=== PATIENT | male | born 1940 | race Caucasian/White ===

== ENCOUNTER 2016-02-21 07:58 | Inpatient (IN) | payer MEDICARE, BC ==
--- NOTE | 2016-02-21 08:26 | ED ---
General Adult HPI - General Chief complaint: Urogenital Stated complaint: weakness,SOB Time Seen by Provider: 02/21/16 08:00 Source: patient, EMS, RN notes reviewed, old records reviewed Mode of arrival: EMS Limitations: no limitations - History of Present Illness Initial comments: This is a 75-year-old male ER for evaluation of weakness. Patient does have Acute medical history including heart disease, A. fib, pacer, kidney injury. Patient coming in with severe weakness and inability urinate, diffuse abdominal pain, body pain, low-grade fever but mainly weakness. Patient is taking all medications as prescribed. States that his urine feels like he has to go to the bathroom but he cannot urinate. Decreased urinary output, decreased appetite. Mild cough and congestion with mild shortness of breath. No recent travel history or sick contacts, no known fevers - Related Data Home Medications Medication Instructions Recorded Confirmed Aspirin EC [Ecotrin Low Dose] 162 mg PO DAILY@1200 02/20/14 02/21/16 Carvedilol [Coreg] 25 mg PO BID@0800,1700 02/20/14 02/21/16 Furosemide [Lasix] 20 mg PO DAILY@0800 02/20/14 02/21/16 Insulin Glargine,Hum.rec.anlog 52 unit SQ HS@219902/20/14 02/21/16 [Lantus Solostar] Nitroglycerin Sl Tabs [Nitrostat] 0.4 mg SUBLINGUAL Q5M PRN 02/20/14 02/21/16 Ramipril [Altace] 10 mg PO DAILY@0800 02/20/14 02/21/16 Repaglinide [Prandin] 2 mg PO TID@0800,1200,1700 02/20/14 02/21/16 Sotalol [Betapace] 120 mg PO BID@1200,0 02/20/14 02/21/16 Apixaban [Eliquis] 2.5 mg PO BID@0800,22011/29/15 02/21/16 Cholecalciferol [Vitamin D3] 1,000 unit PO DAILY@1700 11/29/15 02/21/16 Famotidine [Pepcid AC] 10 mg PO BID@0800,2200 11/29/15 02/21/16 Hydrochlorothiazide [Hydrodiuril] 25 mg PO DAILY@0800 11/29/15 02/21/16 Insulin Lispro [humaLOG Kwikpen] 3 unit SQ TID@0800,1200,1700 11/29/15 02/21/16 Atorvastatin [Lipitor] 40 mg PO HS@2200 02/21/16 02/21/16 Allergies Allergy/AdvReac Type Severity Reaction Status Date / Time gabapentin [From Neurontin] Allergy almost Verified 02/21/16 08:32 passed out codeine AdvReac Unknown Verified 02/21/16 08:32 Review of Systems ROS Statement: Those systems with pertinent positive or pertinent negative responses have been documented in the HPI. ROS Other: All systems not noted in ROS Statement are negative. Past Medical History Past Medical History: Atrial Fibrillation, Diabetes Mellitus, Deep Vein Thrombosis (DVT), Hyperlipidemia, Hypertension, Myocardial Infarction ([place]) Additional Past Medical History / Comment(s): SEE DR BENJAMIN'S HISTORY AND PHYSICAL Last Myocardial Infarction Date:: 2010 History of Any Multi-Drug Resistant Organisms: None Reported Past Surgical History: AICD, Heart Catheterization, Joint Replacement, Orthopedic Surgery Additional Past Surgical History / Comment(s): LEFT-arthroscopic knee, TOTAL LEFT KNEE, LESION REMOVED FROM BACK Past Anesthesia/Blood Transfusion Reactions: No Reported Reaction Type of Cardiac Device: AICD Device Placement Date:: 2010-[employer] Past Psychological History: Anxiety Smoking Status: Former smoker Past Alcohol Use History: None Reported Additional Past Alcohol Use History / Comment(s): STARTED SMOKING AT AGE 16, QUIT 2006 Past Drug Use History: None Reported - Past Family History Daughter(s) Family Medical History: Cancer Father Family Medical History: Coronary Artery Disease (CAD) Additional Family Medical History / Comment(s): Father at the age of 72 yrs from [facility]. Mother Family Medical History: No Reported History Additional Family Medical History / Comment(s): Mother at the age of 84 yrs. General Exam Limitations: no limitations General appearance: alert, in no apparent distress, anxious, obese Head exam: Present: atraumatic, normocephalic, normal inspection Eye exam: Present: normal appearance, PERRL, EOMI. Absent: scleral icterus, conjunctival injection, periorbital swelling ENT exam: Present: normal exam, mucous membranes moist Neck exam: Present: normal inspection. Absent: tenderness, meningismus, lymphadenopathy Respiratory exam: Present: normal lung sounds bilaterally. Absent: respiratory distress, wheezes, rales, rhonchi, stridor Cardiovascular Exam: Present: regular rate, normal rhythm, normal heart sounds. Absent: systolic murmur, diastolic murmur, rubs, gallop, clicks GI/Abdominal exam: Present: soft, normal bowel sounds. Absent: distended, tenderness, guarding, rebound, rigid Extremities exam: Present: normal inspection, full ROM, normal capillary refill. Absent: tenderness, pedal edema, joint swelling, calf tenderness Back exam: Present: normal inspection Neurological exam: Present: alert, oriented X3, CN II-XII intact Psychiatric exam: Present: normal affect, normal mood Skin exam: Present: warm, dry, intact, normal color. Absent: rash Course Vital Signs 02/21/16 02/21/16 02/21/16 08:00 08:30 09:00 Temperature 97.4 F L Pulse Rate 53 L 54 L 50 L Respiratory 19 20 19 Rate Blood Pressure 133/65 146/67 158/68 O2 Sat by Pulse 100 100 98 Oximetry 02/21/16 09:30 Temperature Pulse Rate 51 L Respiratory 18 Rate Blood Pressure 148/68 O2 Sat by Pulse 96 Oximetry - Reevaluation(s) Reevaluation #1: 02/21/16 09:51 Patient is symptomatically improved with mild IV hydration, Virk catheter is placed EKG Findings - EKG Comments: EKG Findings:: EKG shows paced rhythm rate of 54, P-R 296, QRS 110, QTc 491 Medical Decision Making - Medical Decision Making 70 formality ER for evaluation of weakness, decreased urinary output. Patient does have worsening acute on chronic renal failure, severe. Weakness. Uremia. - Lab Data Result diagrams: 02/21/16 08:20 02/21/16 08:20 Lab Results 02/21/16 02/21/16 02/21/16 Range/Units 08:20 08:20 08:20 WBC 3.9 (3.8-10.6) k/uL RBC 3.47 L (4.30-5.90) m/uL Hgb 10.5 L (13.0-17.5) gm/dL Hct 29.6 L (39.0-53.0) % MCV 85.5 (80.0-100.0) fL MCH 30.3 (25.0-35.0) pg MCHC 35.4 (31.0-37.0) g/dL RDW 13.9 (11.5-15.5) % Plt Count 59 L (150-450) k/uL Neutrophils % (Manual) 58.0 % Lymphocytes % (Manual) 24.0 % Monocytes % (Manual) 16.0 % Basophils % (Manual) 2.0 % Neutrophils # (Manual) 2.3 (1.3-7.7) k/uL Lymphocytes # (Manual) 0.9 L (1.0-4.8) k/uL Monocytes # (Manual) 0.6 (0-1.0) k/uL Basophils # (Manual) 0.1 (0-0.2) k/uL Nucleated RBCs 0 (0-0) /100 WBC Manual Slide Review Performed Hyperchromasia Slight Poikilocytosis (manual Present PT (9.0-12.0) sec INR (<1.1) APTT (22.0-30.0) sec Sodium 130 L (137-145) mmol/L Potassium 5.0 (3.5-5.1) mmol/L Chloride 99 (98-107) mmol/L Carbon Dioxide 21 L (22-30) mmol/L Anion Gap 10 mmol/L BUN 78 H (9-20) mg/dL Creatinine 4.98 H (0.66-1.25) mg/dL Est GFR (MDRD) Af Amer 14 (>60 ml/min/1.73 sqM) Est GFR (MDRD) Non-Af 11 (>60 ml/min/1.73 sqM) Glucose 82 (74-99) mg/dL Plasma Lactic Acid Hua (0.7-2.0) mmol/L Calcium 7.4 L (8.4-10.2) mg/dL Phosphorus 5.3 H (2.5-4.5) mg/dL Magnesium 2.8 H (1.6-2.3) mg/dL Total Bilirubin 0.7 (0.2-1.3) mg/dL AST 22 (17-59) U/L ALT 41 (21-72) U/L Alkaline Phosphatase 82 (38-126) U/L Total Creatine Kinase 44 L (55-170) U/L CK-MB (CK-2) 1.4 (0.0-2.4) ng/mL CK-MB (CK-2) Rel Index 3.2 Troponin I 0.018 (0.000-0.034) ng/mL Total Protein 6.6 (6.3-8.2) g/dL Albumin 2.8 L (3.5-5.0) g/dL Urine Color Urine Appearance (Clear) Urine pH (5.0-8.0) Ur Specific Garden (1.001-1.035) Urine Protein (Negative) Urine Glucose (UA) (Negative) Urine Ketones (Negative) Urine Blood (Negative) Urine Nitrate (Negative) Urine Bilirubin (Negative) Urine Urobilinogen (<2.0) mg/dL Ur Leukocyte Esterase (Negative) Urine RBC (0-5) /hpf Urine WBC (0-5) /hpf Urine WBC Clumps (None) /hpf Calcium Oxalate Crystal (None) /hpf Amorphous Sediment (None) /hpf Urine Mucus (None) /hpf 02/21/16 02/21/16 02/21/16 Range/Units 08:20 08:20 09:48 WBC (3.8-10.6) k/uL RBC (4.30-5.90) m/uL Hgb (13.0-17.5) gm/dL Hct (39.0-53.0) % MCV (80.0-100.0) fL MCH (25.0-35.0) pg MCHC (31.0-37.0) g/dL RDW (11.5-15.5) % Plt Count (150-450) k/uL Neutrophils % (Manual) % Lymphocytes % (Manual) % Monocytes % (Manual) % Basophils % (Manual) % Neutrophils # (Manual) (1.3-7.7) k/uL Lymphocytes # (Manual) (1.0-4.8) k/uL Monocytes # (Manual) (0-1.0) k/uL Basophils # (Manual) (0-0.2) k/uL Nucleated RBCs (0-0) /100 WBC Manual Slide Review Hyperchromasia Poikilocytosis (manual PT 11.3 (9.0-12.0) sec INR 1.1 (<1.1) APTT 30.7 H (22.0-30.0) sec Sodium (137-145) mmol/L Potassium (3.5-5.1) mmol/L Chloride (98-107) mmol/L Carbon Dioxide (22-30) mmol/L Anion Gap mmol/L BUN (9-20) mg/dL Creatinine (0.66-1.25) mg/dL Est GFR (MDRD) Af Amer (>60 ml/min/1.73 sqM) Est GFR (MDRD) Non-Af (>60 ml/min/1.73 sqM) Glucose (74-99) mg/dL Plasma Lactic Acid Hua 0.9 (0.7-2.0) mmol/L Calcium (8.4-10.2) mg/dL Phosphorus (2.5-4.5) mg/dL Magnesium (1.6-2.3) mg/dL Total Bilirubin (0.2-1.3) mg/dL AST (17-59) U/L ALT (21-72) U/L Alkaline Phosphatase (38-126) U/L Total Creatine Kinase (55-170) U/L CK-MB (CK-2) (0.0-2.4) ng/mL CK-MB (CK-2) Rel Index Troponin I (0.000-0.034) ng/mL Total Protein (6.3-8.2) g/dL Albumin (3.5-5.0) g/dL Urine Color Yellow Urine Appearance Cloudy (Clear) Urine pH 5.0 (5.0-8.0) Ur Specific Garden 1.011 (1.001-1.035) Urine Protein 1+ H (Negative) Urine Glucose (UA) Negative (Negative) Urine Ketones Negative (Negative) Urine Blood Moderate H (Negative) Urine Nitrate Negative (Negative) Urine Bilirubin Negative (Negative) Urine Urobilinogen <2.0 (<2.0) mg/dL Ur Leukocyte Esterase Negative (Negative) Urine RBC 139 H (0-5) /hpf Urine WBC 8 H (0-5) /hpf Urine WBC Clumps Occasional H (None) /hpf Calcium Oxalate Crystal Rare H (None) /hpf Amorphous Sediment Rare H (None) /hpf Urine Mucus Rare H (None) /hpf - Radiology Data Radiology results: report reviewed (X-ray abdominal series with chest is negative for pneumonia, CT abdomen and pelvis negative for ureterolithiasis), image reviewed Disposition Clinical Impression: Acute renal failure, Electrolyte abnormality Disposition: ADMITTED IP TO THIS HOSP Condition: Fair
[2016-02-21] MEDS ORDERED: SODIUM CHLORIDE 0.9% 1,000 ML IV STA (08:28)
[2016-02-21] MEDS ORDERED: SODIUM CHLORIDE 0.9% 500 ML IV STA (08:28)
[2016-02-21 08:41] LABS: Aty Lym Flag Marked; CH 31.3; CHCM 36.8; HCT 29.6 % (39.0-53.0); HDW 3.31; HGB 10.5 gm/dL (13.0-17.5); Hyperchromasia Slight; MCH 30.3 pg (25.0-35.0); MCHC 35.4 g/dL (31.0-37.0); MCV 85.5 fL (80.0-100.0); Mean Platelet Volume 8.4; RBC 3.47 m/uL (4.30-5.90); RDW 13.9 % (11.5-15.5); WBC 3.9 k/uL (3.8-10.6); WBC (Perox) 4.38
[2016-02-21 08:51] LABS: INR 1.1 (<1.1); Partial Thromboplastin Time 30.7 sec (22.0-30.0); Prothrombin Time 11.3 sec (9.0-12.0)
[2016-02-21 08:53] LABS: Calcium 7.4 mg/dL (8.4-10.2); Magnesium 2.8 mg/dL (1.6-2.3); Phosphorous 5.3 mg/dL (2.5-4.5); Total Bilirubin 0.7 mg/dL (0.2-1.3); Total Protein 6.6 g/dL (6.3-8.2)
[2016-02-21] MEDS ORDERED: MORPHINE SULFATE 2 MG/ML SYRINGE IVP STA (09:01)
[2016-02-21 09:06] LABS: Add Differential Manual Differential
[2016-02-21 09:09] LABS: Nucleated Red Blood Cells 0 /100 WBC (0-0); Total Cells Counted 100
[2016-02-21 09:10] LABS: Manual Review Performed
[2016-02-21 09:17] LABS: Creatine Kinase MB 1.4 ng/mL (0.0-2.4); Troponin I 0.018 ng/mL (0.000-0.034)
[2016-02-21] MEDS ORDERED: SODIUM CHLORIDE 0.9% 1,000 ML IV ONE (09:49)
--- NOTE | 2016-02-21 10:09 | XR ---
EXAMINATION TYPE: XR abdomen acute w cxr DATE OF EXAM: 02/21/2016 9:37 AM COMPARISON: NONE HISTORY: Pain TECHNIQUE: Single view of the chest and 2 views of the abdomen are submitted. FINDINGS: Single view of the chest fails demonstrate evidence for acute pulmonary disease. There is no evidence for pneumoperitoneum. The bowel gas pattern is unremarkable as there is air throughout nondilated small and large bowel. No sizeable air fluid levels. No mass effects are seen. No unusual calcifications. IMPRESSION: Unremarkable study
[2016-02-21] MEDS: cefTRIAXone 2,000 MG in SODIUM CHLORIDE 0.9% 100 ML IVPB STA ×2 (10:20→12:08)
[2016-02-21 10:29] LABS: Amorphous Sediment,Urine Rare /hpf; Appearance,Urine Cloudy (Clear); Bilirubin,Urine Negative (Negative); Calcium Oxalate Crystals,Urine Rare /hpf; Glucose,Urine (UA) Negative (Negative); Ketones,Urine Negative (Negative); Leukocyte Esterase,Urine Negative (Negative); Mucus,Urine Rare /hpf; Nitrite,Urine Negative (Negative); Particle Count 14041; Protein,Urine 1+ (Negative); RBC,Urine 139 /hpf (0-5); Specific Gravity,Urine 1.011 (1.001-1.035); UA Billing (MACRO vs. MICRO) MICRO; Urobilinogen,Urine <2.0 mg/dL (<2.0); WBC,Urine 8 /hpf (0-5)
--- NOTE | 2016-02-21 11:13 | CT ---
EXAMINATION TYPE: CT abdomen pelvis wo con DATE OF EXAM: 02/21/2016 10:40 AM COMPARISON: NONE HISTORY: Patient having generalized abdominal pain and has renal failure CT DLP: 2805 mGycm Automated exposure control for dose reduction was used. FINDINGS: LUNG BASES: There may be small effusions, airspace associated atelectasis, some minimal groundglass o pacity may represent alveolitis, early airspace disease. Intracardiac defibrillator leads are present . The heart is enlarged. No pericardial effusion. Lack of contrast may compromise sensitivity. No retroperitoneal adenopathy, ascites, or pneumoperiton eum evident. AORTA: Infrarenal abdominal aorta is mildly aneurysmal at 4.3 cm. LIVER/GB: Punctate calcifications adjacent to the inferior vena cava within the liver are indetermina te, high attenuation within the dependent portion of the gallbladder compatible with stones. Liver sp an suggests hepatomegaly. PANCREAS: No significant abnormality is seen. SPLEEN: Enlarged measuring greater than 14 cm. ADRENALS: Fat-containing mass is present on the left measuring 4.8 cm compatible with myelolipoma. KIDNEYS: Low dense mass of the upper pole is indeterminate measuring approximately 1.4 cm. Nonobstruc tive calculus present at the lower pole of the left kidney measuring only approximately 5 mm. No uret eral calcification. REPRODUCTIVE ORGANS: Prostate is enlarged and shows associated calcifications. Urinary bladder is ca theterized and collapsed, no free fluid or pelvic adenopathy. BOWEL: Colonic interposition present anterior to the liver, scattered diverticular changes are prese nt. No evident appendicitis. Lipoma is present within the hip flexor musculature on the left measuring 3 cm as well as the gluteal musculature on the left measuring 10 cm. ASCITES: None visible. Small umbilical hernia contains fat. RETROPERITONEAL ADENOPATHY: No Retroperitoneal Adenopathy visible. Postop changes are noted to the lower lumbar spine, there are facet arthropathy changes, degenerative disc change. IMPRESSION: CARDIOMEGALY. CHOLELITHIASIS. HEPATOSPLENOMEGALY. BILATERAL LIPOMA ON THE LEFT. NONOBSTRUCTIVE NEPHRO LITHIASIS LEFT KIDNEY. INFRARENAL ABDOMINAL AORTIC ANEURYSM. DIVERTICULOSIS. PROSTATIC ENLARGEMENT WI TH ASSOCIATED CALCIFICATIONS. LIPOMAS ABOUT THE PELVIC MUSCULATURE ON THE LEFT DESCRIBED. ADDITION AL FINDINGS ABOVE. CHOLELITHIASIS.
--- NOTE | 2016-02-21 11:20 | P.NPCON ---
History of Present Illness - Reason for Consult acute renal failure - History of Present Illness Reason for consultation: Acute kidney injury History of present illness: Patient is a 75-year-old male seen in renal consultation for acute kidney injury on chronic kidney disease. Patient has chronic kidney disease stage III with baseline creatinine near 2. His creatinine is elevated at 4.98 today. Patient presented with generalized weakness and difficulty with urination. Patient does take diuretics at home. A CT of the abdomen and pelvis revealed no evidence of hydronephrosis. States his appetite has been poor the last few days. He denies any vomiting. Admits to constipation. His urinalysis in May 2015 was completely benign. Denies chest pain. Did have some dyspnea which is now improved. Patient does not follow with a medical record librarians teacher as an outpatient and is not aware of any history of kidney disease. Vital signs are stable. General: The patient appeared well nourished and normally developed. HEENT: Head exam is unremarkable. Neck is without jugular venous distension. LUNGS: Lungs are clear to auscultation and percussion. Breath sounds decreased. HEART: Rate and Rhythm are regular. First and second heart sounds normal. No murmurs, rubs or gallops. ABDOMEN: Abdominal exam reveals normal bowel sounds. Non-tender and non- distended. No evidence of peritonitis. EXTREMITITES: No clubbing, cyanosis, or edema. Past Medical History Past Medical History: Atrial Fibrillation, Coronary Artery Disease (CAD), Diabetes Mellitus, Deep Vein Thrombosis (DVT), GERD/Reflux, Hyperlipidemia, Hypertension, Myocardial Infarction ([place]), Osteoarthritis ([place]) Additional Past Medical History / Comment(s): Severe cardiomyopathy, IDDM type II, neuropathy bilateral feet and occasionally in hands, chronic back pain, DVT L arm post AICD placement, diabetic nephropathy, systemic infection from boil on back. Last Myocardial Infarction Date:: 2010 History of Any Multi-Drug Resistant Organisms: None Reported Past Surgical History: Ablation, AICD, Heart Catheterization, Joint Replacement , Orthopedic Surgery, Tonsillectomy Additional Past Surgical History / Comment(s): AICD/dual chamber-[employer], 2 Vtach ablations, PTCA, L upper extremity venogram, LEFT-arthroscopic knee, TOTAL LEFT KNEE, boil REMOVED FROM BACK, lesion off forehead, cyst from wrist ( unkn laterallity), colonoscopy. Past Anesthesia/Blood Transfusion Reactions: No Reported Reaction Type of Cardiac Device: AICD Device Placement Date:: 2010-[employer] Past Psychological History: Anxiety Additional Psychological History / Comment(s): Pt resides with his spouse. He uses a cane if going out. He no longer drives, his spouse does. He has been for 54 yrs. He has a hospital bed from when he had knee surgery. He walks short distances in the home. Smoking Status: Former smoker Past Alcohol Use History: None Reported Additional Past Alcohol Use History / Comment(s): STARTED SMOKING AT AGE 16, QUIT 1994 Past Drug Use History: None Reported - Past Family History Father Family Medical History: Coronary Artery Disease (CAD) Additional Family Medical History / Comment(s): Father at the age of 72 yrs from [facility]. Mother Family Medical History: No Reported History Additional Family Medical History / Comment(s): Mother at the age of 84 yrs. Daughter(s) Family Medical History: Cancer Medications and Allergies Home Medications Medication Instructions Recorded Confirmed Type Aspirin EC [Ecotrin Low Dose] 162 mg PO DAILY@1200 02/20/14 02/21/16 History Carvedilol [Coreg] 25 mg PO BID@0800,1700 02/20/14 02/21/16 History Furosemide [Lasix] 20 mg PO DAILY@0800 02/20/14 02/21/16 History Insulin Glargine,Hum.rec.anlog 52 unit SQ HS@219902/20/14 02/21/16 History [Lantus Solostar] Nitroglycerin Sl Tabs [Nitrostat] 0.4 mg SUBLINGUAL Q5M PRN 02/20/14 02/21/16 History Ramipril [Altace] 10 mg PO DAILY@0800 02/20/14 02/21/16 History Repaglinide [Prandin] 2 mg PO TID@0800,1200,1700 02/20/14 02/21/16 History Sotalol [Betapace] 120 mg PO BID@1200,219902/20/14 02/21/16 History Apixaban [Eliquis] 2.5 mg PO BID@0800,2200 11/29/15 02/21/16 History Cholecalciferol [Vitamin D3] 1,000 unit PO DAILY@1700 11/29/15 02/21/16 History Famotidine [Pepcid AC] 10 mg PO BID@0800,2200 11/29/15 02/21/16 History Hydrochlorothiazide [Hydrodiuril] 25 mg PO DAILY@0800 11/29/15 02/21/16 History Insulin Lispro [humaLOG Kwikpen] 3 unit SQ TID@0800,1200,1700 11/29/15 02/21/16 History Atorvastatin [Lipitor] 40 mg PO HS@2200 02/21/16 02/21/16 History Allergies Allergy/AdvReac Type Severity Reaction Status Date / Time gabapentin [From Neurontin] Allergy almost Verified 02/21/16 08:32 passed out codeine AdvReac Unknown Verified 02/21/16 08:32 Results - Lab Results Most recent lab results Calcium 7.4 mg/dL (8.4-10.2) L 02/21/16 08:20 Phosphorus 5.3 mg/dL (2.5-4.5) H 02/21/16 08:20 Magnesium 2.8 mg/dL (1.6-2.3) H 02/21/16 08:20 02/21/16 08:20 02/21/16 08:20 Assessment and Plan Plan: Assessment: #1. Nonoliguric acute kidney injury mostly prerenal in nature secondary to diuretics and DEBI inhibitor along with poor oral intake. Creatinine up to 4.98 today. #2. Chronic kidney disease stage III secondary to nephrosclerosis with baseline creatinine near 2. #3. Hyponatremia. Now appears euvolemic. #4. Hypertension with chronic kidney disease. Controlled. Plan: Avoid nephrotoxic agents and hypotensive episodes. Diuretics held at this time. Continue with IV hydration. Currently in normal saline running at 100 mL an hour. Maintain Virk catheter. Strict I's and O's. Encourage oral intake. Repeat electrolytes in the morning. Thank you for the consultation. I will continue to follow patient with you during his hospital stay.
[2016-02-21] MEDS: INSULIN LISPRO (humaLOG) 300 UNIT/3 ML VIAL SQ SCH ×4 (13:15→21:40)
[2016-02-21 13:24] LABS: Glucose,Whole Blood 86 mg/dL (75-99)
[2016-02-21] MEDS ORDERED: NITROGLYCERIN SL TABS 0.4 MG TAB SUBLINGUAL PRN (13:24)
[2016-02-21 14:25] LABS: Hemoglobin A1C 6.5 % (4.2-6.1)
[2016-02-21] MEDS: traMADol 50 MG TAB PO PRN (15:46)
[2016-02-21] MEDS: SOTALOL 120 MG TAB PO SCH ×2 (15:48→21:47)
[2016-02-21] MEDS: CARVEDILOL 12.5 MG TAB PO SCH ×2 (15:48)
--- NOTE | 2016-02-21 16:37 | CT ---
EXAMINATION TYPE: CT lumbar spine wo con DATE OF EXAM: 02/21/2016 4:18 PM COMPARISON: CT abdomen and pelvis same date HISTORY: Leg weakness and acute low back pain. CT DLP: 2805.00 mGycm Automated exposure control for dose reduction was used. An unenhanced CT of the lumbar spine was performed. Bone and soft tissue window settings are submitt ed as well as coronal and sagittal reconstructions. FINDINGS: Infrarenal abdominal aortic aneurysm is again noted. Left adrenal mass, dependent high atte nuation within the gallbladder again seen. Possible small pleural effusion, basilar atelectasis versu s scarring. There is a spinal curvature. Lumbar vertebral bodies show preserved height and there is retrolisthesi s grade 1 L3-4, L2-3. There is multilevel spondylosis. Loss of disc height present at the interverteb ral levels. T12-L1: Posterior spur causes anterior mass effect on the thecal sac and mild central canal stenosis. Lateral extension of endplate disc complex results in right-sided foraminal encroachment L1-L2: Posterior spur is present causing moderate central canal stenosis somewhat eccentric towards t he left, no significant foraminal encroachment L2-L3: Posterior spurring shows anterior mass effect on the thecal sac, mild central canal stenosis. Circumferential extension) complex results in bilateral foraminal encroachment. L3-L4: Facet arthropathy change causes a posterior lateral aspect of the thecal sac, bilateral keely ctomies are present. Posterior extension of endplates and disc complex causes anterior mass effect on the thecal sac, circumferential extension causes bilateral foraminal encroachment. Some lateral rece ss stenosis is present left greater than right L4-L5: Posterior circumferential endplate disc complex causes anterior mass effect on the thecal sac. Postop changes are present status post laminectomies. Circumferential extension) complex results in bilateral foraminal encroachment. Facet arthropathy causes posterior lateral mass effect on the theca l sac L5-S1: No significant central stenosis. Facet arthropathy changes present. There may be some right-si ded foraminal encroachment due to lateral extension of endplate disc complex. IMPRESSION: Degenerative disc disease, facet arthropathy, spinal curvature, multilevel foraminal encroachment. In frarenal abdominal aortic aneurysm.
[2016-02-21] MEDS: REPAGLINIDE 1 MG TAB PO SCH (17:42)
[2016-02-21 17:43] LABS: Glucose,Whole Blood 103 mg/dL (75-99)
--- NOTE | 2016-02-21 17:59 | HP ---
DATE OF ADMISSION: 02/21/2016 PRESENTING COMPLAINT: Back pain. HISTORY OF PRESENTING COMPLAINT: This is a 75-year-old patient of Dr. Singer whose chronic stable medical conditions include atrial fibrillation, coronary artery disease, diabetes and neuropathy, GERD, hyperlipidemia, hypertension, cardiomyopathy. Patient states that about 10 days ago he had severe pain in the lower back and he noticed that he was having some trouble making urine. Legs became somewhat weak. He was not feeling well. He is not sure if he really had a fever. He decided to come to the hospital for the same. Renal function was found to be ( ) from here. Admitted for the same. REVIEW OF SYSTEMS: CONSTITUTIONAL: Weak and tired. HEENT: Decreased hearing. RESPIRATORY: Baseline some shortness of breath. CARDIOVASCULAR: No chest pain. GASTROINTESTINAL: Constipation for the last few days. GENITOURINARY: As above. MUSCULOSKELETAL: Aches and pains in multiple joints. DERMATOLOGICAL: Some chronic skin changes, dry skin. HEMATOLOGICAL: None. LYMPHATICS: None. PSYCHIATRY: None. NEUROLOGICAL: Numbness and tingling in the lower extremities. PAST MEDICAL HISTORY: 1. Atrial fibrillation. 2. Coronary artery disease. 3. Diabetes causing neuropathy. 4. DVT in the left lower extremity following AICD. 5. GERD. 6. Hyperlipidemia. 7. Hypertension. 8. Myocardial infarction. 9. Cardiomyopathy. 10. Diabetic nephropathy. PAST SURGICAL HISTORY: 1. Ablation. 2. AICD. 3. Cardiac catheterization. 4. AICD dual-chamber pacemaker. 5. Ventricular tachycardia ablation. 6. Left upper extremity venogram. 7. Left knee arthroscopy. 8. Left total knee. SOCIAL HISTORY: . Smoked for 40 years; stopped in . FAMILY HISTORY: Father at age of 72 from coronary artery disease. HOME MEDICATIONS: 1. Betapace 120 mg p.o. b.i.d. 2. Nitrostat 0.4 sublingually q.5 p.r.n. 3. Prandin 2 mg p.o. t.i.d. 4. Altace 10 mg p.o. daily. 5. Lispro 3 units subcutaneously t.i.d. 6. Lantus 52 units subcutaneously at bedtime. 7. Hydrochlorothiazide 25 mg p.o. daily. 8. Lasix 20 mg p.o. daily. 9. Pepcid 10 mg p.o. b.i.d. 10. Vitamin D3, 1000 units p.o. daily. 11. Coreg 25 mg p.o. b.i.d. 12. Lipitor 40 mg at bedtime. 13. Aspirin 162 mg p.o. daily. 14. Eliquis 2.5 p.o. b.i.d. ALLERGIES: NEURONTIN and CODEINE. On examination, temperature 97.4, pulse 53, respiration 19, blood pressure 133/65, pulse ox 100% on 2 L. GENERAL APPEARANCE: Well built; BMI of 49. Lying in bed, not in distress. EYES: Pupils equal. Conjunctivae normal. HEENT: External appearance of nose and ears normal. Oral cavity normal. NECK: Short, thick. JVD unable to assess. Mass not palpable. RESPIRATORY: Effort normal. LUNGS: Diminished breath sounds. CARDIOVASCULAR: Heart sounds muffled. No edema. ABDOMEN: Distended, soft. Liver and spleen not palpable. LYMPHATIC: No lymph node palpable in neck or axillae. PSYCHIATRY: Alert and oriented x3. Mood and affect normal. NEUROLOGICAL: Pupils equal. Cranial nerves grossly intact. Lower extremity decreased sensation. Patient is able to lift his left leg about 30 degrees, right leg just able to move it on the bed. Reflexes are equivocal. SKIN: Patient has dryness in the lower extremities. MUSCULOSKELETAL: Minimal tenderness in the lumbar spine. INVESTIGATIONS: White count 3.9, hemoglobin 10.5. Potassium 5.0. BUN 78, creatinine 4.98. Patient's BUN and creatinine were 36 and 2.10 on 05/17/15. Hemoglobin A1C is 6.5. UA showing positive for blood, some WBC clumps. ASSESSMENT: 1. This is a patient who presented with acute lower back pain 10 days ago, some weakness in the legs. There is no fever documented here and there is no white count. A herniated disc is entirely possible; less likely, but discitis needs to be ruled out. 2. Acute renal failure, likely acute tubular necrosis, drug-induced. Patient is on multiple renal-offensive drugs. 3. Chronic kidney disease, stage III, from diabetic nephropathy. 4. 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 5. Morbid obesity; body mass index greater than 50. 6. Coronary artery disease. 7. Diabetes mellitus, type 2, chronically on insulin, causing peripheral neuropathy. 8. Gastroesophageal reflux disease. 9. Hyperlipidemia. 10. Essential hypertension. 11. Cardiomyopathy; ejection fraction not known. PLAN: Renal-offensive drugs will be held off, including DEBI inhibitor, diuretics. Patient will be gently hydrated. Will get a CT scan of the lumbar spine; cannot give contrast because of renal function. Will consult Dr. Mckeon from [facility] and also get a neurology opinion. Accu-Cheks will be closely followed. Care was discussed with the patient. Patient's Eliquis will be continued. Will cut back on the aspirin to 81 mg a day. Care was discussed with the patient and his .
[2016-02-21 20:39] LABS: Glucose,Whole Blood 89 mg/dL (75-99)
[2016-02-21] MEDS: ATORVASTATIN 40 MG TAB PO SCH (21:47)
[2016-02-21] MEDS: FAMOTIDINE 20 MG TAB PO SCH (21:47)
[2016-02-21] MEDS: APIXABAN 2.5 MG TABLET PO SCH (21:47)
[2016-02-21] MEDS: SODIUM CHLORIDE 0.9% 1,000 ML IV SCH (22:05)
[2016-02-21] MEDS: INSULIN GLARGINE 100 UNIT/ML 10 ML VIAL SQ SCH (23:58)
[2016-02-22 08:33] LABS: Aty Lym Flag Moderate; HCT 30.1 % (39.0-53.0); HDW 3.15; HGB 10.1 gm/dL (13.0-17.5); MCHC 33.6 g/dL (31.0-37.0); MCV 89.1 fL (80.0-100.0); Mean Platelet Volume 8.5; RBC 3.38 m/uL (4.30-5.90); RDW 14.2 % (11.5-15.5); WBC 4.9 k/uL (3.8-10.6); WBC (Perox) 5.29
[2016-02-22] MEDS: traMADol 50 MG TAB PO PRN (08:35)
[2016-02-22] MEDS: APIXABAN 2.5 MG TABLET PO SCH (08:36)
[2016-02-22] MEDS: FAMOTIDINE 20 MG TAB PO SCH (08:36)
[2016-02-22] MEDS: REPAGLINIDE 1 MG TAB PO SCH ×3 (08:36→17:21)
[2016-02-22] MEDS: INSULIN LISPRO (humaLOG) 300 UNIT/3 ML VIAL SQ SCH ×7 (08:36→21:09)
[2016-02-22] MEDS: SODIUM CHLORIDE 0.9% 1,000 ML IV SCH ×3 (08:37→17:32)
[2016-02-22] MEDS: CARVEDILOL 12.5 MG TAB PO SCH ×2 (08:38→17:21)
[2016-02-22 08:52] LABS: Calcium 7.2 mg/dL (8.4-10.2); Potassium 5.4 mmol/L (3.5-5.1)
--- NOTE | 2016-02-22 08:56 | P.CNOR ---
History of Present Illness - [facility] Consult date: 02/22/16 Requesting physician: Guillermo Johnson Consult reason: low back pain (Low back pain and urinary retention) History of present illness: Patient is a very pleasant 75-year-old male who is seen and examined at the bedside for further evaluation after we were consulted by Dr. Johnson for low back pain and urinary retention. He has since been found to have acute on chronic stage III kidney disease along with an enlarged prostate found on CT the abdomen and pelvis. He was seen and examined yesterday by Dr. Diamond in neurology. Consultation has been placed for urology to further treatment his enlarged prostate. Consultation with pain management has also been ordered. Patient states this morning he does not feel he currently needs orthopedic spine services as his symptoms are stemming from his prostate not his lumbar spine. He is known have previously underwent multiple laminectomies of the lumbar spine. Patient states his surgeries were approximately 8 years ago. He does have some chronic back pain and is currently experiencing some right-sided low back pain. He states he does have diabetes as well as diabetic neuropathy of the bilateral lower extremities. He states he has numbness and tingling in the feet. He describes general pain in the lower extremities without a specific radicular pattern. At this time he feels he has multiple other medical conditions going on and does not feel further evaluation for his lumbar spine is warranted at this time. He is known have degenerative changes of the lumbar spine. Past Medical History Past Medical History: Atrial Fibrillation, Coronary Artery Disease (CAD), Diabetes Mellitus, Deep Vein Thrombosis (DVT), GERD/Reflux, Hyperlipidemia, Hypertension, Myocardial Infarction (TN), Osteoarthritis (OA) Additional Past Medical History / Comment(s): Severe cardiomyopathy, IDDM type II, neuropathy bilateral feet and occasionally in hands, chronic back pain, DVT L arm post AICD placement, diabetic nephropathy, systemic infection from boil on back. Last Myocardial Infarction Date:: 2010 History of Any Multi-Drug Resistant Organisms: None Reported Past Surgical History: Ablation, AICD, Heart Catheterization, Joint Replacement , Orthopedic Surgery, Tonsillectomy Additional Past Surgical History / Comment(s): AICD/dual chamber-medtronic, 2 Vtach ablations, PTCA, L upper extremity venogram, LEFT-arthroscopic knee, TOTAL LEFT KNEE, boil REMOVED FROM BACK, lesion off forehead, cyst from wrist ( unkn laterallity), colonoscopy. Past Anesthesia/Blood Transfusion Reactions: No Reported Reaction Type of Cardiac Device: AICD Device Placement Date:: 2010-medtronic Past Psychological History: Anxiety Additional Psychological History / Comment(s): Pt resides with his spouse. He uses a cane if going out. He no longer drives, his spouse does. He has been for 54 yrs. He has a hospital bed from when he had knee surgery. He walks short distances in the home. Smoking Status: Former smoker Past Alcohol Use History: None Reported Additional Past Alcohol Use History / Comment(s): STARTED SMOKING AT AGE 16, QUIT 1994 Past Drug Use History: None Reported - Past Family History Father Family Medical History: Coronary Artery Disease (CAD) Additional Family Medical History / Comment(s): Father at the age of 72 yrs from [facility]. Mother Family Medical History: No Reported History Additional Family Medical History / Comment(s): Mother at the age of 84 yrs. Daughter(s) Family Medical History: Cancer Medications and Allergies Home Medications Medication Instructions Recorded Confirmed Type Aspirin EC [Ecotrin Low Dose] 162 mg PO DAILY@1200 02/20/14 02/21/16 History Carvedilol [Coreg] 25 mg PO BID@0800,1700 02/20/14 02/21/16 History Furosemide [Lasix] 20 mg PO DAILY@0800 02/20/14 02/21/16 History Insulin Glargine,Hum.rec.anlog 52 unit SQ HS@0 02/20/14 02/21/16 History [Lantus Solostar] Nitroglycerin Sl Tabs [Nitrostat] 0.4 mg SUBLINGUAL Q5M PRN 02/20/14 02/21/16 History Ramipril [Altace] 10 mg PO DAILY@0800 02/20/14 02/21/16 History Repaglinide [Prandin] 2 mg PO TID@0800,1200,1700 02/20/14 02/21/16 History Sotalol [Betapace] 120 mg PO BID@1200,2200 02/20/14 02/21/16 History Apixaban [Eliquis] 2.5 mg PO BID@0800,2200 11/29/15 02/21/16 History Cholecalciferol [Vitamin D3] 1,000 unit PO DAILY@1700 11/29/15 02/21/16 History Famotidine [Pepcid AC] 10 mg PO BID@0800,2200 11/29/15 02/21/16 History Hydrochlorothiazide [Hydrodiuril] 25 mg PO DAILY@0800 11/29/15 02/21/16 History Insulin Lispro [humaLOG Kwikpen] 3 unit SQ TID@0800,1200,1700 11/29/15 02/21/16 History Atorvastatin [Lipitor] 40 mg PO HS@2200 02/21/16 02/21/16 History Allergies Allergy/AdvReac Type Severity Reaction Status Date / Time gabapentin [From Neurontin] Allergy almost Verified 02/21/16 08:32 passed out codeine AdvReac Unknown Verified 02/21/16 08:32 Physical Examination Physical exam: Patient is awake, alert, and oriented 3 Vital signs stable Good chest excursion with deep inspiration and expiration Abdomen soft nontender Examination of lumbar spine reveals skin is intact with no abrasions, lacerations, or bruises; no erythema, purulence or signs of infection Evidence of a well-healed incision along the midline the lumbar spine Dorsiflexion, plantarflexion, and extensor hallucis longus positive sustained bilaterally Lower extremity strength 5/5 bilaterally Able to lift legs independently off the bed without significant difficulty Evidence of trophic skin changes of the bilateral lower extremities Straight leg test negative bilateral lower extremities Negative Lasegue's test bilaterally No signs or symptoms of DVT; no calf pain No pain with internal and external rotation of the hips bilaterally Lower extremities warm to palpation General sensation intact lower extremities Results Pertinent studies: CT of the lumbar spine taken on 02/21/2016: Degenerative scoliosis; L1-2 posterior spur causing moderate central canal stenosis; L2-3 grade 1 retrolisthesis and posterior spurring resulting in mild central canal stenosis and bilateral foraminal encroachment; L3-4 grade 1 retrolisthesis, facet arthropathy, evidence of bilateral laminectomies, and posterior disc osteophyte complex resulting in bilateral neural foraminal narrowing; L4-5 evidence of previous laminectomy, facet arthropathy, and posterior circumferential disc osteophyte complex resulting in bilateral foraminal encroachment; L5-S1 facet arthropathy; lumbar degenerative disc disease throughout the lumbar spine CT the abdomen and pelvis: Cardiomegaly; cholelithiasis; hepatosplenomegaly; nonobstructing nephrolithiasis left kidney; infrarenal abdominal aortic aneurysm ; diverticulosis; prosthetic enlargement with associated calcifications - Labs Labs: Abnormal Lab Results - Last 24 Hours (Table) 02/21/16 Range/Units 17:39 POC Glucose (mg/dL) 103 H (75-99) mg/dL Result Diagrams: 02/21/16 08:20 02/21/16 08:20 Assessment and Plan (1) Low back pain Status: Acute (2) Lumbar degenerative disc disease Status: Acute (3) Lumbar stenosis Status: Acute (4) Spondylolisthesis, lumbar region Status: Acute (5) Lumbar facet arthropathy Status: Acute (6) Diabetic neuropathy Status: Acute (7) Urinary retention Status: Acute (8) Acute renal failure Status: Acute (9) Diabetes Status: Acute Plan: Assessment: Urinary retention Low back pain History of previous laminectomies at L3-4 and L4-5 L1-2 central canal stenosis L2-3 grade 1 retrolisthesis and central canal stenosis L3-4 retrolisthesis and facet arthropathy L4-5 and L5-S1 facet arthropathy Lumbar degenerative disc disease Enlarged prostate Acute on chronic stage III kidney disease Diabetes with diabetic neuropathy Plan: 1. After further discussion with the patient, physical examination, reviewing his imaging, and reviewing documentation for other medical providers, we are not currently planning acute surgical intervention in regards to his lumbar spine. At this time we will continue with conservative treatment. It does not appear he has acute changes in regards to his lumbar spine. He currently appears it is most likely the cause of his urinary retention is stemming from his enlarged prostate. He is currently waiting for consultation by urology. He will also plan to be seen and examined by pain management for further evaluation and possible epidural injections. We discussed at this time we'll plan have him follow up on an as-needed basis. If after working through conservative treatment options his symptoms are not improving, he is encouraged to call the office to set up a follow-up appointment. Patient feels as good plan care as he is not currently wishing to have further evaluation by orthopedic spine. 2. Dr. Johnson in medicine, neurology, nephrology, neurology, and pain management to continue following the patient for his other significant medical diagnoses 3. From an orthopedic spine standpoint, patient is clear for discharge once cleared by other medical providers 4. Following discharge, patient he follow-up with Aguilar Alvarez PA-C or Dr. Leo Mckeon [facility] on an as-needed basis 5. I will discuss this patient in detail with Dr. Leo Mckeon. Time with Patient: Greater than 30
[2016-02-22 09:47] LABS: Add Differential Manual Differential
[2016-02-22 09:54] LABS: Manual Review Performed; Nucleated Red Blood Cells 0 /100 WBC (0-0); Total Cells Counted 200
[2016-02-22] MEDS ORDERED: FUROSEMIDE 10 MG/ML 10 ML VIAL IV STA (10:06)
--- NOTE | 2016-02-22 10:38 | CONS ---
DATE OF CONSULTATION: 02/21/2016. CHIEF COMPLAINT: Low back pain and lower extremity weakness. HISTORY OF PRESENT ILLNESS: Mr. Alvarez is a 75-year-old male who is being evaluated today on 02/21/2016 by the neurology service per the request of Dr. Johnson for the above-mentioned complaints. The patient was brought into [facility] emergency room stating that he woke up earlier this morning with increasing low back pain and noticed some weakness in his lower extremities. He also had significant difficulties emptying his bladder. The patient does have history of lumbar spine surgery. In the emergency room, he was noticed to have some lower extremity weakness. A CT scan of the lumbar spine was done, which showed no severe findings. There were degenerative disk changes and facet joint arthropathy along with mild canal stenosis in the upper and middle lumbar spine. Post laminectomy changes were seen. A CT scan of the abdomen and pelvis showed hepatosplenomegaly, cholelithiasis, prostate enlargement, and an abdominal aortic aneurysm. An abdominal x-ray was negative. His CBC showed anemia with a hemoglobin of 10.5 and significant thrombocytopenia at 59,000. His comprehensive metabolic profile showed hyponatremia at 130 and renal insufficiency with a BUN of 78 and creatinine of 4.98. His magnesium and phosphorous were high at 2.8 and 5.3 respectively. His cardiac enzymes were negative. The patient was admitted for further work-up and management. Nephrology was consulted regarding the renal insufficiency. At the time of my evaluation, he reports significant improvements in his low back pain and mild to moderate improvements in his lower extremity weakness, which he states is more significant on the right side. PAST MEDICAL HISTORY: Atrial fibrillation, diabetes, history of deep venous thrombosis, dyslipidemia, hypertension, history of myocardial infarction, history of heart catheterization, orthopedic surgeries, AICD placement, lumbar spine surgery. He also has history of anxiety disorder. SOCIAL HISTORY: The patient quit smoking over 10 years ago. He denies any alcohol or drug use. FAMILY HISTORY: Positive for cancer and heart disease. HOME MEDICATIONS: Reviewed in the chart. ALLERGIES: NEURONTIN, CODEINE. REVIEW OF SYSTEMS: CONSTITUTIONAL: Positive for fatigue. EYES: Negative. ENT: Negative. CARDIOVASCULAR: Negative. RESPIRATORY: Positive for occasional shortness of breath. NEUROLOGICAL: As mentioned above. GASTROINTESTINAL: Positive for occasional heartburn. GENITOURINARY: As mentioned above. MUSCULOSKELETAL: As mentioned above. DERMATOLOGIC: Negative. ENDOCRINE: Positive for diabetes. PSYCHIATRIC: Positive for anxiety disorder. PHYSICAL EXAM: Vital signs show a temperature of 97.6, pulse 52, respirations 18, blood pressure 144/64. GENERAL APPEARANCE: The patient is an obese male who appears to be in no acute distress. HEENT: Normocephalic, atraumatic, no facial asymmetry is seen. Neck is supple with no masses felt. CARDIOVASCULAR: Regular rate and rhythm. ABDOMEN: Obese, nontender, nondistended. Extremities showed edema in bilateral lower extremities. No clubbing is seen. NEUROLOGICAL EXAM: The patient is alert, aware, and oriented x3. Speech and language are normal. Strength is 5/5 in bilateral upper extremities, 4/5 in the right lower extremity, and 4+/5 in the left lower extremity. Deep tendon reflexes were hyporeflexive. Sensory exam was normal to light touch in all 4 extremities. No tremors are seen or seizure-like activity is noticed. No facial asymmetry is noticed on cranial nerve testing. IMPRESSION: 1. Intractable lumbago, improved. 2. Lower extremity weakness, improving. 3. Urinary retention. 4. Facet joint arthropathy at the lumbar spine. 5. Lumbar spinal stenosis. RECOMMENDATIONS: The patient's low back pain has improved at this time and he still has some weakness in the lower extremities, but this has also improved in intensity. I do not see any major changes in the lumbar spine to explain his weakness or could explain his urinary retention. He was found to have enlarged prostate on the CT scan of the pelvis. I will consult urology for further evaluation. Nephrology is following the patient for his renal insufficiency. I will consult physical therapy. Dr. Mckeon has been consulted regarding the lumbar spine findings. Continue Ultram as needed for his lumbago. Continue neuro checks. I will continue to follow with you. Further recommendations to follow. Thank you for allowing me to participate in the care of your patient. If you have any questions, please feel free to contact me.
--- NOTE | 2016-02-22 10:41 | P.PN ---
Subjective Principal diagnosis: STEPHANIE Patient is seen in follow-up for acute kidney injury on chronic kidney disease. Patient has chronic kidney disease stage III with baseline creatinine near 2. He was elevated at 4.98 at the time of admission yesterday and is up to 5.16 this morning. Patient presented with back pain and generalized weakness. His appetite has been poor the last few days. He was also maintained on Lasix as well as hydrochlorothiazide at home. A CT of the abdomen and pelvis revealed no evidence of hydronephrosis. A Virk catheter was placed in his urine output has been about 600 mL in the last 24 hours. He's currently maintained on normal saline at 100 mL an hour. He feels dyspneic. Appetite is fair. Denies vomiting or diarrhea. Vital signs are stable. General: The patient appeared well nourished and normally developed. HEENT: Head exam is unremarkable. Neck is without jugular venous distension. LUNGS: Lungs are clear to auscultation and percussion. Breath sounds decreased. HEART: Rate and Rhythm are regular. First and second heart sounds normal. No murmurs, rubs or gallops. ABDOMEN: Abdominal exam reveals normal bowel sounds. Non-tender and non- distended. No evidence of peritonitis. EXTREMITITES: 1+ edema. Objective - Vital Signs Vital signs: Vital Signs Temp 97.6 F 02/22/16 07:00 Pulse 58 L 02/22/16 08:00 Resp 20 02/22/16 07:00 BP 142/70 02/22/16 07:00 Pulse Ox 92 L 02/22/16 07:00 Intake & Output 02/21/16 02/22/16 02/22/16 18:59 06:59 18:59 Intake Total 1500 1090 Output Total 500 Balance 1500 590 Intake: IV 1500 500 Sodium Chloride 0.9% 1, 400 500 000 ml @ 100 mls/hr IV . Q10H ONE Rx#:[id number] Sodium Chloride 0.9% 1, 1000 000 ml @ 999 mls/hr IV . Q1H1M STA Rx#:[id number] cefTRIAXone 2,000 mg In 100 Sodium Chloride 0.9% 100 ml @ 100 mls/hr IVPB ONCE STA Rx#:[id number] Oral 590 Output: Stool 500 Other: Voiding Method Indwelling Catheter Indwelling Catheter Indwelling Catheter - Labs CBC & Chem 7: 02/22/16 07:41 02/22/16 07:41 Labs: Abnormal Lab Results - Last 24 Hours (Table) 02/21/16 02/22/16 02/22/16 Range/Units 17:39 07:41 07:41 RBC 3.38 L (4.30-5.90) m/uL Hgb 10.1 L (13.0-17.5) gm/dL Hct 30.1 L (39.0-53.0) % Plt Count 60 L (150-450) k/uL Sodium 133 L (137-145) mmol/L Potassium 5.4 H (3.5-5.1) mmol/L Carbon Dioxide 20 L (22-30) mmol/L BUN 77 H (9-20) mg/dL Creatinine 5.16 H* (0.66-1.25) mg/dL POC Glucose (mg/dL) 103 H (75-99) mg/dL Calcium 7.2 L (8.4-10.2) mg/dL Assessment and Plan Plan: Assessment: #1. Nonoliguric acute kidney injury secondary to ATN secondary to diuretics and DEBI inhibitor along with poor oral intake. Creatinine up to 5.12 today. Also question ALLERGIC interstitial nephritis in view of white cells in the urine. Urinalysis from May 2015 was completely benign. No hydronephrosis noted on CT. #2. Chronic kidney disease stage III secondary to nephrosclerosis with baseline creatinine near 2. #3. Hyponatremia. Improved. #4. Hypertension with chronic kidney disease. Controlled. #5. Low back pain. Plan: Avoid nephrotoxic agents and hypotensive episodes. Continue with IV hydration - decrease rate to 75 mL an hour. Maintain Virk catheter. Strict I's and O's. Lasix 80 mg IV once now. Encourage oral intake. Repeat electrolytes in the morning. If no improvement with urine output after Lasix, will plan for renal replacement therapy. Patient agrees and understands. Check urine eosinophils. Follow-up cultures.
[2016-02-22] MEDS: ASPIRIN 81 MG CHEW PO SCH (12:39)
[2016-02-22] MEDS: MAGNESIUM HYDROXIDE 2,400 MG/10 ML CUP PO PRN (12:39)
[2016-02-22] MEDS: SOTALOL 120 MG TAB PO SCH ×2 (12:40→21:27)
[2016-02-22] MEDS ORDERED: TAMSULOSIN 0.4 MG CAP.ER.24H PO STA (12:42)
--- NOTE | 2016-02-22 12:43 | P.GSCN ---
History of Present Illness Consult date: 02/22/16 Reason for Consult: urine retention History of present illness: the patient is a 75-year-old gentleman who came in the hospital with weakness. He is found to be in renal failure and is near dialysis. His creatinine is up to 5. Patient states for the last couple weeks he is voiding small frequent amounts and felt that he was not emptying his bladder adequately. Apparently a catheter is placed in the emergency room but only 100 mL of urine was obtained. He has never had previous urologic problems. Normally his stream is been relatively good without infection bleeding pain or leakage. He is not been previously placed on alpha blockers or other medicines to assist in urination. The patient has a catheter in now and is somewhat uncomfortable. He states that it really hasn't changed the way his urination is felt. He has no other urologic history. Review of Systems - Constitutional Reports anorexia, Reports lethargy, Reports weakness - Cardiovascular Denies chest pain, Denies shortness of breath - Genitourinary Reports as per HPI Past Medical History Past Medical History: Atrial Fibrillation, Coronary Artery Disease (CAD), Diabetes Mellitus, Deep Vein Thrombosis (DVT), GERD/Reflux, Hyperlipidemia, Hypertension, Myocardial Infarction (SD), Osteoarthritis (OA) Additional Past Medical History / Comment(s): Severe cardiomyopathy, IDDM type II, neuropathy bilateral feet and occasionally in hands, chronic back pain, DVT L arm post AICD placement, diabetic nephropathy, systemic infection from boil on back. Last Myocardial Infarction Date:: 2010 History of Any Multi-Drug Resistant Organisms: None Reported Past Surgical History: Ablation, AICD, Heart Catheterization, Joint Replacement , Orthopedic Surgery, Tonsillectomy Additional Past Surgical History / Comment(s): AICD/dual chamber-medtronic, 2 Vtach ablations, PTCA, L upper extremity venogram, LEFT-arthroscopic knee, TOTAL LEFT KNEE, boil REMOVED FROM BACK, lesion off forehead, cyst from wrist ( unkn laterallity), colonoscopy. Past Anesthesia/Blood Transfusion Reactions: No Reported Reaction Type of Cardiac Device: AICD Device Placement Date:: 2010-medtronic Past Psychological History: Anxiety Additional Psychological History / Comment(s): Pt resides with his spouse. He uses a cane if going out. He no longer drives, his spouse does. He has been for 54 yrs. He has a hospital bed from when he had knee surgery. He walks short distances in the home. Smoking Status: Former smoker Past Alcohol Use History: None Reported Additional Past Alcohol Use History / Comment(s): STARTED SMOKING AT AGE 16, QUIT 1994 Past Drug Use History: None Reported - Past Family History Father Family Medical History: Coronary Artery Disease (CAD) Additional Family Medical History / Comment(s): Father at the age of 72 yrs from [facility]. Mother Family Medical History: No Reported History Additional Family Medical History / Comment(s): Mother at the age of 84 yrs. Daughter(s) Family Medical History: Cancer Medications and Allergies Home Medications Medication Instructions Recorded Confirmed Type Aspirin EC [Ecotrin Low Dose] 162 mg PO DAILY@1200 02/20/14 02/21/16 History Carvedilol [Coreg] 25 mg PO BID@0800,1700 02/20/14 02/21/16 History Furosemide [Lasix] 20 mg PO DAILY@0800 02/20/14 02/21/16 History Insulin Glargine,Hum.rec.anlog 52 unit SQ HS@219902/20/14 02/21/16 History [Lantus Solostar] Nitroglycerin Sl Tabs [Nitrostat] 0.4 mg SUBLINGUAL Q5M PRN 02/20/14 02/21/16 History Ramipril [Altace] 10 mg PO DAILY@0800 02/20/14 02/21/16 History Repaglinide [Prandin] 2 mg PO TID@0800,1200,1700 02/20/14 02/21/16 History Sotalol [Betapace] 120 mg PO BID@1200,0 02/20/14 02/21/16 History Apixaban [Eliquis] 2.5 mg PO BID@0800,2200 11/29/15 02/21/16 History Cholecalciferol [Vitamin D3] 1,000 unit PO DAILY@1700 11/29/15 02/21/16 History Famotidine [Pepcid AC] 10 mg PO BID@0800,2200 11/29/15 02/21/16 History Hydrochlorothiazide [Hydrodiuril] 25 mg PO DAILY@0800 11/29/15 02/21/16 History Insulin Lispro [humaLOG Kwikpen] 3 unit SQ TID@0800,1200,1700 11/29/15 02/21/16 History Atorvastatin [Lipitor] 40 mg PO HS@2200 02/21/16 02/21/16 History Allergies Allergy/AdvReac Type Severity Reaction Status Date / Time gabapentin [From Neurontin] Allergy almost Verified 02/21/16 08:32 passed out codeine AdvReac Unknown Verified 02/21/16 08:32 Surgical - Exam Vital Signs Temp Pulse Resp BP Pulse Ox 97.4 F L 53 L 19 133/65 100 02/21/16 08:00 02/21/16 08:00 02/21/16 08:00 02/21/16 08:00 02/21/16 08:00 - General well developed, well nourished, obese - Eyes PERRL - ENT no hearing loss - Neck trachea midline - Respiratory normal expansion, normal respiratory effort - Cardiovascular Rhythm: irregularly irregular - Abdomen Abdomen: soft, non tender - Genitourinary indwelling catheter. The prostate is 30 g firm but benign with right side larger than the left. normal penis with no external lesions, testicles present - Integumentary no rash - Musculoskeletal week, poor strength, normal posture - Psychiatric oriented to time, oriented to person, oriented to place Results - Labs 02/22/16 07:41 02/22/16 07:41 Abnormal Lab Results - Last 24 Hours (Table) 02/21/16 02/22/16 02/22/16 Range/Units 17:39 07:41 07:41 RBC 3.38 L (4.30-5.90) m/uL Hgb 10.1 L (13.0-17.5) gm/dL Hct 30.1 L (39.0-53.0) % Plt Count 60 L (150-450) k/uL Sodium 133 L (137-145) mmol/L Potassium 5.4 H (3.5-5.1) mmol/L Carbon Dioxide 20 L (22-30) mmol/L BUN 77 H (9-20) mg/dL Creatinine 5.16 H* (0.66-1.25) mg/dL POC Glucose (mg/dL) 103 H (75-99) mg/dL Calcium 7.2 L (8.4-10.2) mg/dL Diabetes panel 12/23/16 Range/Units 07:41 Sodium 133 L (137-145) mmol/L Potassium 5.4 H (3.5-5.1) mmol/L Chloride 102 (98-107) mmol/L Carbon Dioxide 20 L (22-30) mmol/L BUN 77 H (9-20) mg/dL Creatinine 5.16 H* (0.66-1.25) mg/dL Glucose 89 (74-99) mg/dL Calcium 7.2 L (8.4-10.2) mg/dL Calcium panel 02/22/16 Range/Units 07:41 Calcium 7.2 L (8.4-10.2) mg/dL Pituitary panel 02/22/16 Range/Units 07:41 Sodium 133 L (137-145) mmol/L Potassium 5.4 H (3.5-5.1) mmol/L Chloride 102 (98-107) mmol/L Carbon Dioxide 20 L (22-30) mmol/L BUN 77 H (9-20) mg/dL Creatinine 5.16 H* (0.66-1.25) mg/dL Glucose 89 (74-99) mg/dL Calcium 7.2 L (8.4-10.2) mg/dL Adrenal panel 02/22/16 Range/Units 07:41 Sodium 133 L (137-145) mmol/L Potassium 5.4 H (3.5-5.1) mmol/L Chloride 102 (98-107) mmol/L Carbon Dioxide 20 L (22-30) mmol/L BUN 77 H (9-20) mg/dL Creatinine 5.16 H* (0.66-1.25) mg/dL Glucose 89 (74-99) mg/dL Calcium 7.2 L (8.4-10.2) mg/dL Assessment and Plan Plan: impression: Questionable urine retention. Acute renal failure of indeterminate etiology. Multiple cardiac problems. Morbid obesity. Recommendations. I'm not totally certain this patient is in urine retention. I will place him on Flomax however the catheter probably should stay in place until nephrology wishes to have it removed. Once nephrology wishes to have it removed a voiding trial as appropriate. Follow this patient with you
[2016-02-22] MEDS: DOCUSATE 100 MG CAP PO SCH (13:24)
[2016-02-22 13:40] LABS: Glucose,Whole Blood 96 mg/dL (75-99)
[2016-02-22 13:41] LABS: Glucose,Whole Blood 172 mg/dL (75-99)
[2016-02-22 16:55] LABS: Glucose,Whole Blood 152 mg/dL (75-99)
--- NOTE | 2016-02-22 17:14 | PN ---
DATE OF SERVICE: 02/22/2016 PRESENTING COMPLAINT: Worsening renal function. INTERVAL HISTORY: This patient presented with multiple ( ) systems, difficulty walking, urinary retention and worsening renal failure. Patient seen by Dr. Leo Mckeon from orthopedic spine, in his opinion, spine complaint was not connected to his lower extremity findings. Enlarged prostate explains decreased urine output. Also seen by urology. Also seen by Dr. Diamond from neurology. The patient actually took a walker and walked to the bathroom. Virk catheter is in place. Because of renal function, patient may be a dialysis candidate depending how he does. Review of systems done for constitutional, cardiovascular, GI, pulmonary; relevant findings as above. Current medications are reviewed. On examination, temperature 97.6, pulse 51, respirations 20, blood pressure 142/70, pulse ox 92% on room air. GENERAL APPEARANCE: Lying in bed, tired appearing. EYES: Pupils equal. Conjunctivae pale. NECK: JVD not raised. Mass not palpable. RESPIRATORY: Effort normal. LUNGS: Diminished breath sounds. CARDIOVASCULAR: Heart sounds muffled. No edema. ABDOMEN: ( ). Liver and spleen not palpable. PSYCHIATRY: Alert and oriented x3. Mood and affect normal. NEUROLOGICAL: Able to lift both his legs about 15 degrees. INVESTIGATIONS: White count 4.9, hemoglobin 10.9, potassium 5.4. BUN 77, creatinine 5.16. ASSESSMENT: 1. Acute renal failure, likely acute tubular necrosis, drug induced, worsening nonoliguric. 2. Chronic kidney stage III from diabetic nephropathy. 3. 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 4. Moderate obesity, body mass index greater than 50. 5. Benign prostatic hypertrophy, causing decreased urine outflow obstruction. 6. Coronary artery disease. 7. Diabetes mellitus type 2, chronically on insulin causing peripheral neuropathy. 8. Gastroesophageal reflux disease. 9. Hyperlipidemia. 10. Essential hypertension. 11. Cardiomyopathy, ejection fraction not known. PLAN: Continue current medication and treatment plan. Continue with hydration. Virk to be kept at strict I's and O's. Patient did walk to the bathroom. Care was discussed with the patient. Follow.
[2016-02-22 20:45] LABS: Glucose,Whole Blood 130 mg/dL (75-99)
[2016-02-22 20:54] LABS: Calcium 7.1 mg/dL (8.4-10.2); Potassium 5.9 mmol/L (3.5-5.1)
[2016-02-22] MEDS: INSULIN GLARGINE 100 UNIT/ML 10 ML VIAL SQ SCH (21:26)
[2016-02-22] MEDS: ATORVASTATIN 40 MG TAB PO SCH (21:26)
--- NOTE | 2016-02-22 23:41 | P.PN ---
Subjective Principal diagnosis: lower extremity weakness, low back pain Patient's a 75-year-old male is being followed by neurology for low back pain and lower extremity weakness. His low back pain was noted to be increased upon waking yesterday morning when he also noticed some weakness in his lower extremities. He has significant difficulty voiding. Patient is positive for lumbar spinal surgery in the past. I'll being evaluated in the ED he was noted to have some lower extremity weakness. CT lumbar spine showed no severe emergent findings. It did note degenerative disc changes and facet arthropathy along with mild canal stenosis in the upper and middle lumbar spine. Postlaminectomy changes were also seen. CT scan of the abdomen and pelvis showed hepatosplenomegaly, cholelithiasis, prostate enlargement and an abdominal aortic aneurysm. Abdominal x-ray was negative. CBC showed anemia and significant thrombocytopenia. CMP noted hyponatremia and renal insufficiency as well as hypermagnesemia and hyperphosphatemia. Cardiac enzymes were negative. Nephrology was also consult regarding patient's possible renal insufficiency. Contact in the patient today reported significant improvement in low back pain and mild to moderate improvement in lower extremity weakness which was consistent with his initial consult with neurology yesterday. It is noted that his lower extremity weakness is greater on the right side than left. On contact, the patient was supine in bed resting comfortably in no acute distress. Patient had a friend at the bedside. Objective - Vital Signs Vital signs: Vital Signs Temp 97.0 F L 02/22/16 22:35 Pulse 50 L 02/22/16 22:35 Resp 16 02/22/16 22:35 BP 138/65 02/22/16 22:35 Pulse Ox 93 L 02/22/16 22:35 Intake & Output 02/22/16 02/22/16 02/23/16 06:59 18:59 06:59 Intake Total 1090 700 590 Output Total 500 400 Balance 590 300 590 Intake: IV 500 Sodium Chloride 0.9% 1, 500 000 ml @ 100 mls/hr IV . Q10H ONE Rx#:[id number] Intake, IV Titration 700 Amount Sodium Chloride 0.9% 1, 400 000 ml @ 100 mls/hr IV . Q10H [facility] Rx#:[id number] Sodium Chloride 0.9% 1, 300 000 ml @ 75 mls/hr IV . [id number] [facility] Rx#:[id number] Oral 590 590 Output: Urine 400 Stool 500 Other: Voiding Method Indwelling Catheter Indwelling Catheter - Constitutional General appearance: Present: cooperative, obese - EENT EENT Comment(s): aatraumatic normocephalic - Neck Details: supple, no masses - Respiratory Details: no increased work of breathing - Cardiovascular Details: regular rate Rhythm: regular - Gastrointestinal Gastrointestinal Comment(s): nontender, nondistended, edema in the bilateral lower extremities, no clubbing seen - Genitourinary Male genitourinary: enlarged prostate - Neurologic Neurologic Comment(s): patient is alert and aware and oriented 3. Speech and language are normal. Strength is 5 out of 5 in the bilateral upper extremities, 4 out of 5 in the right lower extremity and 4+ out of 5 in the left lower extremity. DTRs were hyporeflexive. Sensory exam was normal to light touch in all 4 extremities. No tremors are seen and no seizure-like activity is noted. No facial asymmetry is noticed on cranial nerve testing. - Musculoskeletal Musculoskeletal Comment(s): See noted changes/weakness in neurological section comments - Psychiatric Psychiatric: Present: A&O x's 3 - Labs CBC & Chem 7: 02/22/16 07:41 02/22/16 20:01 Labs: Abnormal Lab Results - Last 24 Hours (Table) 02/22/16 02/22/16 02/22/16 Range/Units 07:41 07:41 12:03 RBC 3.38 L (4.30-5.90) m/uL Hgb 10.1 L (13.0-17.5) gm/dL Hct 30.1 L (39.0-53.0) % Plt Count 60 L (150-450) k/uL Sodium 133 L (137-145) mmol/L Potassium 5.4 H (3.5-5.1) mmol/L Carbon Dioxide 20 L (22-30) mmol/L BUN 77 H (9-20) mg/dL Creatinine 5.16 H* (0.66-1.25) mg/dL Glucose (74-99) mg/dL POC Glucose (mg/dL) 172 H (75-99) mg/dL Calcium 7.2 L (8.4-10.2) mg/dL 02/22/16 02/22/16 02/22/16 Range/Units 16:53 20:01 20:43 RBC (4.30-5.90) m/uL Hgb (13.0-17.5) gm/dL Hct (39.0-53.0) % Plt Count (150-450) k/uL Sodium 130 L (137-145) mmol/L Potassium 5.9 H (3.5-5.1) mmol/L Carbon Dioxide (22-30) mmol/L BUN 81 H* (9-20) mg/dL Creatinine 5.18 H* (0.66-1.25) mg/dL Glucose 128 H (74-99) mg/dL POC Glucose (mg/dL) 152 H 130 H (75-99) mg/dL Calcium 7.1 L (8.4-10.2) mg/dL Assessment and Plan (1) Lumbar degenerative disc disease Status: Acute (2) Lumbar facet arthropathy Status: Acute (3) Lumbar stenosis Status: Acute (4) Low back pain Narrative/Plan: Patient's low back pain is continuing to improve. He has some weakness in the lower extremities this is also improved. Imaging results of the lumbar spine is inconsistent with the patient's level of pain. Urology and Nephrology have both seen the patient. At this time it is believed to be that the patient's underlying etiology of his current pain is not exclusive to the lumbar spine/ low back history. I had discussion with the patient that his pain may be multifactorial in etiology. He did state that he wanted relief with his difficulty with urination as well as his flank pain and discomfort with urination and then determine whether or not his pain was significant enough to warrant further follow-up. At this point neurology will follow on an as-needed basis. Please feel free to contact our office if you require further assistance and we would be happy to assist again with the care of this patient. I discussed the patient's pertinent medical information with Dr. Diamond. He agrees with the plan of care as implemented. Status: Acute
[2016-02-23 07:50] LABS: Calcium 6.8 mg/dL (8.4-10.2); Potassium 5.8 mmol/L (3.5-5.1)
[2016-02-23 08:30] LABS: Glucose,Whole Blood 98 mg/dL (75-99)
[2016-02-23] MEDS: DOCUSATE 100 MG CAP PO SCH (10:05)
[2016-02-23] MEDS: FAMOTIDINE 20 MG TAB PO SCH (10:05)
[2016-02-23] MEDS: INSULIN LISPRO (humaLOG) 300 UNIT/3 ML VIAL SQ SCH ×7 (10:05→21:56)
[2016-02-23] MEDS: REPAGLINIDE 1 MG TAB PO SCH ×3 (10:06→16:17)
[2016-02-23] MEDS: ASPIRIN 81 MG CHEW PO SCH (10:06)
[2016-02-23] MEDS: CARVEDILOL 12.5 MG TAB PO SCH ×2 (10:08→16:16)
[2016-02-23 12:00] LABS: Glucose,Whole Blood 90 mg/dL (75-99)
--- NOTE | 2016-02-23 13:01 | P.PN ---
Subjective This is a 75-year-old male seen in consultation initially with worsening creatinine. He is known with chronic kidney disease with a baseline creatinine off off 2. His worsening of creatinine was was deemed to be from acute kidney injury from reduce oral intake, diuretics and DEBI inhibitor. In the hospital he has been hydrated with IV normal saline. His not showing any subjective improvement with shortness of breath. Remaining the same. Her appetite. No nausea vomiting diarrhea abdominal pain no fever chills. No cough. He is profoundly weak. He claims that he was able to walk normally before this admission hisatrial fibrillation pacer diabetes mellitus, DVT in the past Objective - Vital Signs Vital signs: Vital Signs Temp 97 F L 02/23/16 07:00 Pulse 60 02/23/16 07:00 Resp 18 02/23/16 07:00 BP 149/71 02/23/16 07:00 Pulse Ox 96 02/23/16 07:00 Intake & Output 02/22/16 02/23/16 02/23/16 18:59 06:59 18:59 Intake Total 700 1190 Output Total 400 375 500 Balance 300 815 -500 Weight 146.51 kg Intake: Intake, IV Titration 700 600 Amount Sodium Chloride 0.9% 1, 400 000 ml @ 100 mls/hr IV . Q10H [facility] Rx#:[id number] Sodium Chloride 0.9% 1, 300 600 000 ml @ 75 mls/hr IV . [id number] [facility] Rx#:[id number] Oral 590 Output: Urine 400 375 Stool 500 Other: Voiding Method Indwelling Catheter Indwelling Catheter Indwelling Catheter On examination he is profoundly weak. I a half to have the help of an assisted and off. HEENT exam was difficult no JVP is noted neck is supple no facial asymmetry. Lungs are clear to auscultation with good air entry bilaterally no dullness percussion Heart sounds are unremarkable for any murmur rub gallop Abdomen is obese difficult to examine but nontender no organomegaly ascites Extremity exam reveals mild edema. Warm to touch. Neurologically awake alert oriented 3 no asterixis no focal motor deficit but profoundly weak as mentioned - Labs CBC & Chem 7: 02/22/16 07:41 02/23/16 06:36 Labs: Abnormal Lab Results - Last 24 Hours (Table) 02/22/16 02/22/16 02/22/16 Range/Units 12:03 16:53 20:01 Sodium 130 L (137-145) mmol/L Potassium 5.9 H (3.5-5.1) mmol/L Carbon Dioxide (22-30) mmol/L BUN 81 H* (9-20) mg/dL Creatinine 5.18 H* (0.66-1.25) mg/dL Glucose 128 H (74-99) mg/dL POC Glucose (mg/dL) 172 H 152 H (75-99) mg/dL Calcium 7.1 L (8.4-10.2) mg/dL 02/22/16 02/23/16 Range/Units 20:43 06:36 Sodium 130 L (137-145) mmol/L Potassium 5.8 H (3.5-5.1) mmol/L Carbon Dioxide 18 L (22-30) mmol/L BUN 81 H* (9-20) mg/dL Creatinine 5.15 H* (0.66-1.25) mg/dL Glucose (74-99) mg/dL POC Glucose (mg/dL) 130 H (75-99) mg/dL Calcium 6.8 L (8.4-10.2) mg/dL Assessment and Plan Plan: Impression. 1. Acute kidney injury with worsening creatinine. Etiology of which is not clear. It was initially deemed to be from low intake, DEBI inhibitor's and diuretics. In spite of hydration his creatinine has continued to worsen as of yesterday from a baseline creatinine of 2.1 on 05/17/2015, 4.98 on admission on 02/21/2016 5.18 as of yesterday and this morning is 5.15. Urine is a dark, urinalysis done today by me shows too numerous to count normal-looking RBCs, occasional WBCs,, and occasional renal tubular cells and occasional WBC casts. No RBC casts or granular casts. urinalysis in the hospital on 02/21/2016 shows 1+ protein specific gravity 1011 139 RBCs and 8 WBCs. Urine eosinophil is 0. this is more suggestive of acute interstitial nephritis rather than any glomerular disease and less likely to be ATN. 2. Chronic kidney disease creatinine of 2 baseline as of 05/17/2015. 3. Cardiomegaly. 4. Cholelithiasis. 5. Hepatosplenomegaly by computed tomography scan. 6. Nonobstructive nephrolithiasis left kidney. 7. 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 8. 1.4 cm dense left upper pole of the kidney. 9. Atrial fibrillation Recommendation. We'll try a trial of prednisone 30 g twice a day. Will hold off dialysis. Explain to patient and he accepts. No need for dialysis today. Will reassess tomorrow and if necessary a catheter will be placed. Dr. Mcginnis is aware. He was on anticoagulants alopecic has been on hold since for the last 2 days
[2016-02-23] MEDS ORDERED: SODIUM POLYSTYRENE SULFONATE 15 GM/60 ML BOTTLE PO STA (14:57)
[2016-02-23] MEDS: SODIUM CHLORIDE 0.9% 1,000 ML IV SCH (15:03)
[2016-02-23] MEDS: SOTALOL 120 MG TAB PO SCH ×2 (16:15→21:54)
[2016-02-23 17:16] LABS: Glucose,Whole Blood 111 mg/dL (75-99)
[2016-02-23 20:54] LABS: Glucose,Whole Blood 158 mg/dL (75-99)
[2016-02-23] MEDS: INSULIN GLARGINE 100 UNIT/ML 10 ML VIAL SQ SCH (21:54)
[2016-02-23] MEDS: ATORVASTATIN 40 MG TAB PO SCH (21:54)
[2016-02-23] MEDS: predniSONE 10 MG TAB PO SCH (21:55)
--- NOTE | 2016-02-23 22:03 | PN ---
DATE OF SERVICE: 02/23/2016 PRESENTING COMPLAINT: Worsening renal function. INTERVAL HISTORY: This patient presented with multiple problems, including urinary retention felt to be from BPH versus renal failure, started steroids today by Dr. Chowdary ) in the hope that dialysis can be avoided. If not, the patient will go to dialysis. Patient is weak in his legs, seen by Dr. Leo Mckeon, using a walker. Review of systems done for constitutional, cardiovascular, GI, pulmonary; relevant findings as above. Current medications are that include oral prednisone. On examination, temperature 97, pulse 60, respirations 18, blood pressure 147/61, pulse ox 96% on 2L. GENERAL APPEARANCE: Lying in bed, tired-appearing. EYES: Pupils equal. Conjunctivae not pale. NECK: JVD not raised. Mass not palpable. RESPIRATORY: Effort normal. LUNGS: Diminished breath sounds. CARDIOVASCULAR: Heart sounds muffled. No edema. ABDOMEN: Soft, nontender. Liver and spleen not palpable. PSYCHIATRY: Awake, answering simple questions. INVESTIGATIONS: BUN 81, creatinine 1.15, potassium 5.8. ASSESSMENT: 1. Acute renal failure, likely acute tubular necrosis, drug induced, worsening, nonoliguric. 2. Chronic kidney disease, stage 4 from diabetic nephropathy. 3. Thrombocytopenia, Likely immune thrombocytopenic purpura. 4. Moderate obesity, body mass index greater than 50. 5. Benign prostatic hypertrophy, causing decreased urine outflow obstruction. 6. Coronary artery disease. 7. Diabetes mellitus type 2, chronically on insulin causing peripheral neuropathy. 8. Gastroesophageal reflux disease. 9. Hyperlipidemia. 10. Essential hypertension. 11. Cardiomyopathy, ejection fraction not known. 12. Gait dysfunction, using a walker. 13. Hyperkalemia. PLAN: Will give patient 30 g of Kayexalate, put the patient on low potassium diet in addition, follow up with Nephrology. Care was discussed with the patient.
[2016-02-24 07:09] LABS: Glucose,Whole Blood 172 mg/dL (75-99)
[2016-02-24] MEDS: INSULIN LISPRO (humaLOG) 300 UNIT/3 ML VIAL SQ SCH ×7 (07:38→21:08)
[2016-02-24] MEDS: CARVEDILOL 12.5 MG TAB PO SCH ×2 (07:38→16:23)
[2016-02-24] MEDS: DOCUSATE 100 MG CAP PO SCH (07:39)
[2016-02-24] MEDS: REPAGLINIDE 1 MG TAB PO SCH ×3 (07:39→16:23)
[2016-02-24] MEDS: FAMOTIDINE 20 MG TAB PO SCH (07:40)
[2016-02-24] MEDS: predniSONE 10 MG TAB PO SCH ×2 (07:40→21:09)
[2016-02-24] MEDS: SODIUM CHLORIDE 0.9% 1,000 ML IV SCH (07:46)
[2016-02-24 09:31] LABS: Basophils % (A) 0 %; CH 30.8; CHCM 35.4; Eosinophils % (A) 0 %; HCT 27.6 % (39.0-53.0); HDW 3.25; HGB 9.1 gm/dL (13.0-17.5); Luc # (Auto) 0.09; Luc % (Auto) 3; Lymphocytes # (A) 0.4 k/uL (1.0-4.8); Lymphocytes % (A) 14 %; MCV 87.6 fL (80.0-100.0); Mean Platelet Volume 8.6; Monocytes # (A) 0.1 k/uL (0-1.0); Monocytes % (A) 3 %; Neutrophils # (A) 2.4 k/uL (1.3-7.7); Neutrophils % (A) 80 %; RBC 3.14 m/uL (4.30-5.90); RDW 13.9 % (11.5-15.5); WBC (Perox) 3.22
[2016-02-24 09:41] LABS: Calcium 6.6 mg/dL (8.4-10.2); Potassium 5.6 mmol/L (3.5-5.1); Total Bilirubin 0.7 mg/dL (0.2-1.3); Total Protein 5.8 g/dL (6.3-8.2)
[2016-02-24 11:41] LABS: Glucose,Whole Blood 161 mg/dL (75-99)
[2016-02-24] MEDS: ASPIRIN 81 MG CHEW PO SCH (12:12)
[2016-02-24] MEDS: SOTALOL 120 MG TAB PO SCH ×2 (12:13→21:09)
--- NOTE | 2016-02-24 12:45 | P.PN ---
Subjective Principal diagnosis: lower extremity weakness, low back pain This is a 75-year-old male seen in consultation initially with worsening creatinine. He is known with chronic kidney disease with a baseline creatinine of 2. His worsening of creatinine was was deemed to be from acute kidney injury from reduce oral intake, diuretics and JERE inhibitor. In the hospital he has been hydrated with IV normal saline. His not showing any subjective improvement with shortness of breath. Remaining the same. Yesterday I looked at the urine and it showed too numerous to count normal- looking RBCs occasional wbc's occasional renal tubular cells and occasional wbc casts. There is no RBC casts or granular casts. It was consistent with acute interstitial nephritis and not with ATN. He was started on prednisone 30 mg twice a day yesterday evening 02/23/2016. This morning he is feeling somewhat better less fatigued. He used to be able to walk without any problems but here in the hospital he has been bedridden and was unable to even sit up. This is improved today with the prednisone. His urine output is also increased from 7 75 mL yesterday to 1850 mL. Creatinine has improved as well.. He has fair appetite. No nausea vomiting diarrhea abdominal pain no fever chills. No cough. He is known with atrial fibrillation pacer diabetes mellitus, DVT in the past, and obesity Objective - Vital Signs Vital signs: Vital Signs Temp 97.7 F 02/24/16 07:00 Pulse 51 L 02/24/16 07:00 Resp 20 02/24/16 07:00 BP 146/91 02/24/16 07:00 Pulse Ox 98 02/24/16 07:00 Intake & Output 02/23/16 02/24/16 02/24/16 18:59 06:59 18:59 Intake Total 1190 240 Output Total 750 1100 600 Balance 440 -860 -600 Weight 146.51 kg Intake: Intake, IV Titration 600 Amount Sodium Chloride 0.9% 1, 600 000 ml @ 75 mls/hr IV . [id number] [facility] Rx#:[id number] Oral 590 240 Output: Urine 250 600 600 Uretheral (Virk) 600 600 Stool 500 500 Other: Voiding Method Indwelling Catheter Indwelling Catheter Indwelling Catheter On examination he is comfortable awake alert. HEENT exam no JVP is difficult exam because of a short neck. Neck is supple no facial asymmetry Lungs are clear to auscultation and percussion but he could not sit up and therefore exam was on his side. Heart sounds are unremarkable for any murmur rub gallop Abdomen soft nontender obese Extremity exam was mild edema. Neurologically awake alert oriented. Profoundly weak though. - Labs CBC & Chem 7: 02/24/16 09:23 02/24/16 09:23 Labs: Abnormal Lab Results - Last 24 Hours (Table) 02/23/16 02/23/16 02/24/16 Range/Units 16:56 20:50 07:07 WBC (3.8-10.6) k/uL RBC (4.30-5.90) m/uL Hgb (13.0-17.5) gm/dL Hct (39.0-53.0) % Plt Count (150-450) k/uL Lymphocytes # (1.0-4.8) k/uL Sodium (137-145) mmol/L Potassium (3.5-5.1) mmol/L Carbon Dioxide (22-30) mmol/L BUN (9-20) mg/dL Creatinine (0.66-1.25) mg/dL Glucose (74-99) mg/dL POC Glucose (mg/dL) 111 H 158 H 172 H (75-99) mg/dL Calcium (8.4-10.2) mg/dL Total Protein (6.3-8.2) g/dL Albumin (3.5-5.0) g/dL 02/24/16 02/24/16 02/24/16 Range/Units 09:23 09:23 11:27 WBC 3.0 L (3.8-10.6) k/uL RBC 3.14 L (4.30-5.90) m/uL Hgb 9.1 L (13.0-17.5) gm/dL Hct 27.6 L (39.0-53.0) % Plt Count 56 L (150-450) k/uL Lymphocytes # 0.4 L (1.0-4.8) k/uL Sodium 129 L (137-145) mmol/L Potassium 5.6 H (3.5-5.1) mmol/L Carbon Dioxide 17 L (22-30) mmol/L BUN 84 H* (9-20) mg/dL Creatinine 4.80 H (0.66-1.25) mg/dL Glucose 160 H (74-99) mg/dL POC Glucose (mg/dL) 161 H (75-99) mg/dL Calcium 6.6 L (8.4-10.2) mg/dL Total Protein 5.8 L (6.3-8.2) g/dL Albumin 2.4 L (3.5-5.0) g/dL Assessment and Plan Plan: Impression. 1. Acute interstitial nephritis with Acute kidney injury with worsening creatinine. Etiology of which was initially deemed to be from prerenal from Jere inhibitors diuretics and decreased intake. Urinalysis was more suggestive of acute interstitial nephritis, too numerous to count normal-looking RBCs, occasional WBCs,, and occasional renal tubular cells and occasional WBC casts. No RBC casts or granular casts.therefore he was started on prednisone 30 g twice a day starting yesterday 02/23/2016. Urine output improved creatinine went down to 4.8 from 5.1. 2. Chronic kidney disease creatinine of 2 baseline as of 05/17/2015. 3. Cardiomegaly. 4. Cholelithiasis. 5. Hepatosplenomegaly by computed tomography scan. 6. Nonobstructive nephrolithiasis left kidney. 7. 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 8. 1.4 cm dense left upper pole of the kidney. 9. Atrial fibrillation Recommendation. Continue prednisone 30 g twice a day. Will hold off dialysis. Reduce IV fluids to KVO
[2016-02-24] MEDS ORDERED: FUROSEMIDE 10 MG/ML 2 ML VIAL IV ONE (13:00)
[2016-02-24] MEDS: traMADol 50 MG TAB PO PRN (16:23)
[2016-02-24 17:08] LABS: Glucose,Whole Blood 216 mg/dL (75-99)
[2016-02-24 20:53] LABS: Glucose,Whole Blood 237 mg/dL (75-99)
[2016-02-24] MEDS: INSULIN GLARGINE 100 UNIT/ML 10 ML VIAL SQ SCH (21:09)
[2016-02-24] MEDS: ATORVASTATIN 40 MG TAB PO SCH (21:09)
[2016-02-25 07:35] LABS: Glucose,Whole Blood 184 mg/dL (75-99)
[2016-02-25] MEDS: INSULIN LISPRO (humaLOG) 300 UNIT/3 ML VIAL SQ SCH ×7 (08:25→21:50)
[2016-02-25] MEDS: REPAGLINIDE 1 MG TAB PO SCH ×3 (08:30→17:09)
[2016-02-25] MEDS: DOCUSATE 100 MG CAP PO SCH (08:31)
[2016-02-25] MEDS: predniSONE 10 MG TAB PO SCH ×2 (08:31→21:50)
[2016-02-25] MEDS: FAMOTIDINE 20 MG TAB PO SCH (08:31)
[2016-02-25] MEDS: CARVEDILOL 12.5 MG TAB PO SCH ×2 (08:32→17:09)
--- NOTE | 2016-02-25 09:48 | PN ---
DATE OF SERVICE: 02/24/2016 PRESENTING COMPLAINT: Renal failure. INTERVAL HISTORY: This patient with multiple problems presented with urinary retention felt to be from benign prostatic hypertrophy. Also had acute renal failure. Started on steroids by Dr. Talbert so that dialysis can be deferred. There has been some improvement in renal functions and dialysis has been postponed. Patient has been weak and using a walker. Tolerating a diet. Review of systems done for constitutional, cardiovascular, GI, pulmonary; relevant findings as above. Current medications include oral prednisone. On examination, temperature 97.7, pulse 54, respiratory rate 20, blood pressure 142/91, pulse ox 98% on 2 liters. GENERAL APPEARANCE: Obese; lying in bed, not in distress because. EYES: Pupils equal. Conjunctivae normal, pale. NECK: JVD not raised. Mass not palpable. RESPIRATORY: Effort normal. LUNGS: Diminished breath sounds. CARDIOVASCULAR: Heart sounds muffled. No edema. ABDOMEN: Soft, nontender. Liver and spleen not palpable. PSYCHIATRY: Awake, answering questions. INVESTIGATIONS: White count 3, hemoglobin 9.1, platelets 56, potassium 5.6, BUN 84, creatinine 4.8. Sodium 129. ASSESSMENT: 1. Acute renal failure likely acute tubular necrosis, could be drug induced, nonoliguric, with some improvement for use of steroids. 2. Chronic kidney disease stage IV from diabetic nephropathy. 3. 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 4. Moderate obesity, body mass index greater than 50. 5. Benign prostatic hypertrophy, causing decreased urine outflow obstruction. 6. Coronary artery disease. 7. Diabetes mellitus type 2, chronically on insulin, causing peripheral neuropathy. 8. Gastroesophageal reflux disease. 9. Hyperlipidemia. 10. Essential hypertension. 11. Cardiomyopathy, ejection fraction not known. 12. Gait dysfunction, uses a walker. 13. Hyperkalemia from underlying chronic kidney disease. PLAN: Per nephrology continue the steroids. Dialysis has been postponed. Will give some more Kayexalate. Continue to bring the potassium down. Patient is slow to respond.
[2016-02-25 10:18] LABS: Basophils % (A) 0 %; CH 30.3; CHCM 34.6; Eosinophils % (A) 0 %; HCT 28.2 % (39.0-53.0); HDW 3.18; HGB 9.7 gm/dL (13.0-17.5); Luc # (Auto) 0.12; Luc % (Auto) 3; Lymphocytes # (A) 0.4 k/uL (1.0-4.8); Lymphocytes % (A) 10 %; MCH 30.3 pg (25.0-35.0); MCHC 34.5 g/dL (31.0-37.0); Mean Platelet Volume 7.9; Monocytes # (A) 0.1 k/uL (0-1.0); Monocytes % (A) 3 %; Neutrophils # (A) 3.4 k/uL (1.3-7.7); Neutrophils % (A) 84 %; RDW 13.9 % (11.5-15.5); WBC 4.1 k/uL (3.8-10.6); WBC (Perox) 4.07
[2016-02-25 10:30] LABS: Calcium 6.8 mg/dL (8.4-10.2); Potassium 5.8 mmol/L (3.5-5.1); Total Bilirubin 0.7 mg/dL (0.2-1.3); Total Protein 6.5 g/dL (6.3-8.2)
--- NOTE | 2016-02-25 10:41 | P.PN ---
Subjective Principal diagnosis: lower extremity weakness, low back pain This is a 75-year-old male seen in consultation initially with worsening creatinine. He is known with chronic kidney disease with a baseline creatinine of 2. He initially presented with difficulty in urination generalized weakness on His worsening of creatinine was initially deemed to be from acute kidney injury from reduce oral intake, diuretics and JERE inhibitor. And his creatinine did not improve with hydration, a urinalysis was consistent with acute interstitial nephritis. He was started on prednisone 30 gram-positive on 02/23/2016 and he responded very well with the reduction in creatinine and improvement in urine output. since then he has some shortness of breath yesterday 02/24/2016 and he was started on Lasix yesterday extra dose. He was still on IV fluids. We will stop it today. His urinalysis done by me showed too numerous to count normal-looking RBCs occasional wbc's occasional renal tubular cells and occasional wbc casts. There is no RBC casts or granular casts. It was consistent with acute interstitial nephritis and not with ATN. He has fair appetite. No nausea vomiting diarrhea abdominal pain no fever chills. No cough. He is known with atrial fibrillation pacer diabetes mellitus, DVT in the past, and obesity Objective - Vital Signs Vital signs: Vital Signs Temp 96.6 F L 02/25/16 07:00 Pulse 50 L 02/25/16 07:00 Resp 32 H 02/25/16 07:00 BP 151/79 02/25/16 07:00 Pulse Ox 100 02/25/16 07:00 Intake & Output 02/24/16 02/25/16 02/25/16 18:59 06:59 18:59 Intake Total 200 Output Total 1050 150 Balance -1050 50 Intake: Oral 200 Output: Urine 1050 150 Uretheral (Virk) 600 Other: Voiding Method Indwelling Catheter Urinal # Bowel Movements 1 Currently on exam he is awake alert oriented HEENT xam JVP seems to be elevated. No facial asymmetry neck is supple Lungs are clear to auscultation with possible occasional coarse crackle at bases no dullness percussion Heart sounds are unremarkable for any murmur rub gallop. Abdomen is obese difficult to examine Extremity exam was 2+ edema Neurologically awake alert oriented. No focal motor deficit - Labs CBC & Chem 7: 02/25/16 10:05 02/24/16 09:23 Labs: Abnormal Lab Results - Last 24 Hours (Table) 02/24/16 02/24/16 02/24/16 Range/Units 11:27 17:05 20:23 RBC (4.30-5.90) m/uL Hgb (13.0-17.5) gm/dL Hct (39.0-53.0) % Plt Count (150-450) k/uL Lymphocytes # (1.0-4.8) k/uL POC Glucose (mg/dL) 161 H 216 H 237 H (75-99) mg/dL 02/25/16 02/25/16 Range/Units 07:26 10:05 RBC 3.20 L (4.30-5.90) m/uL Hgb 9.7 L (13.0-17.5) gm/dL Hct 28.2 L (39.0-53.0) % Plt Count 68 L (150-450) k/uL Lymphocytes # 0.4 L (1.0-4.8) k/uL POC Glucose (mg/dL) 184 H (75-99) mg/dL Assessment and Plan Plan: Impression. 1. Acute interstitial nephritis with Acute kidney injury with worsening creatinine. Etiology of which was initially deemed to be from prerenal from Jere inhibitors diuretics and decreased intake. Urinalysis was more suggestive of acute interstitial nephritis, too numerous to count normal-looking RBCs, occasional WBCs,, and occasional renal tubular cells and occasional WBC casts. No RBC casts or granular casts.therefore he was started on prednisone 30 g twice a day starting day before yesterday 02/23/2016. Urine output improved creatinine went down to 4.8 from 5.1. Today's labs are pending. 2. Virk catheter has been taken off yesterday. Watch for urinary retention. 2. Chronic kidney disease creatinine of 2 baseline as of 05/17/2015. 3. Cardiomegaly. 4. Cholelithiasis. 5. Hepatosplenomegaly by computed tomography scan. 6. Nonobstructive nephrolithiasis left kidney. 7. 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 8. 1.4 cm dense left upper pole of the kidney. 9. Atrial fibrillation Recommendation. Continue prednisone 30 g twice a day. Continue to hold off dialysis. Reduce IV fluids to KVO. Lasix 20 mg IV every 12 today. Labs tomorrow.
[2016-02-25] MEDS ORDERED: SODIUM POLYSTYRENE SULFONATE 15 GM/60 ML BOTTLE PO STA (11:28)
[2016-02-25 11:29] LABS: Glucose,Whole Blood 238 mg/dL (75-99)
[2016-02-25] MEDS: ASPIRIN 81 MG CHEW PO SCH (12:10)
[2016-02-25] MEDS: SOTALOL 120 MG TAB PO SCH ×2 (12:11→21:50)
--- NOTE | 2016-02-25 15:21 | PN ---
Patient is admitted secondary to urinary retention, benign prostatic hypertrophy, acute renal failure, acute renal failure was believed to be secondary to allergic interstitial glomerular nephritis from medications including allergic interstitial or acute tubular necrosis from diuretic therapy and DEBI inhibitor therapy which are being held at this point of time. Patient is making urine and the expectation of his renal failure will improve with conservative therapy because of which dialysis is being postponed at this point of time. REVIEW OF SYSTEMS: CARDIOVASCULAR: No chest pain, no orthopnea, no PND, no palpitations. PULMONARY: Denied any shortness of breath. No cough or hemoptysis. GASTROINTESTINAL: No diarrhea, nausea or vomiting. No abdominal pain. Normoactive bowel sounds. NEUROLOGIC: No headaches, no weakness, no numbness. Medications were reviewed. PHYSICAL EXAMINATION: Temperature 96.6, pulse of 50, respiratory rate of 20, blood pressure is 151/70, saturating at 100% on 2 liters O2 by nasal cannula. GENERAL: Morbidly obese, alert and oriented x3. HEENT: Pupils are round and equally reacting to light. EOMI. No scleral icterus. No conjunctival pallor. Normocephalic, atraumatic. No pharyngeal erythema. No thyromegaly. CARDIOVASCULAR: S1 and S2 present. No murmurs, rubs, or gallops. PULMONARY: Chest is clear to auscultation, no wheezing or crackles. ABDOMEN: Soft, nontender, nondistended, normoactive bowel sounds. No palpable organomegaly. MUSCULOSKELETAL: No joint swelling or deformity. EXTREMITIES: No cyanosis, clubbing, or pedal edema. NEUROLOGICAL: Gross neurological examination did not reveal any focal deficits. SKIN: No rashes. LABORATORY DATA: CBC, CMP are abnormal for elevated potassium of 5.8, we will give a dose of Kayexelate, bicarbonate of 17 secondary to uremia, anion gap metabolic acidosis secondary to uremia. BUN of 95, creatinine of 4.97. ASSESSMENT AND PLAN: 1. Acute renal failure secondary to acute tubular necrosis and ( ) interstitial nephritis from above-mentioned reasons and patient is on systemic steroids. 2. Chronic kidney disease stage III stage IV from diabetic nephropathy. Patient has a history of idiopathic thrombocytopenic purpura apparently as per Dr. Johnson's. 3. Morbid obesity. 4. Benign prostatic hypertrophy. 5. Coronary artery disease. 6. Type 2 diabetes mellitus. Insulin-dependent. 7. Gastroesophageal reflux disease. 8. Essential hypertension. 9. Apparently patient appears as per the previous dictations, patient has cardiomyopathy, ejection fraction is unknown at this point of time. 10. Hyperkalemia secondary to kidney disease and patient will receive Kayexelate. 11. Anion gap metabolic acidosis secondary to uremia. PLAN: As mentioned above.
[2016-02-25 17:01] LABS: Glucose,Whole Blood 239 mg/dL (75-99)
[2016-02-25 21:21] LABS: Glucose,Whole Blood 239 mg/dL (75-99)
[2016-02-25] MEDS: INSULIN GLARGINE 100 UNIT/ML 10 ML VIAL SQ SCH (21:49)
[2016-02-25] MEDS: ATORVASTATIN 40 MG TAB PO SCH (21:50)
[2016-02-25] MEDS: FUROSEMIDE 10 MG/ML 2 ML VIAL IV SCH (21:51)
[2016-02-26 07:03] LABS: Glucose,Whole Blood 157 mg/dL (75-99)
[2016-02-26 07:15] LABS: CH 30.3; HCT 27.8 % (39.0-53.0); HDW 3.26; HGB 9.6 gm/dL (13.0-17.5); MCHC 34.4 g/dL (31.0-37.0); WBC 5.5 k/uL (3.8-10.6)
[2016-02-26 07:36] LABS: Calcium 6.8 mg/dL (8.4-10.2); Potassium 5.5 mmol/L (3.5-5.1)
[2016-02-26] MEDS: INSULIN LISPRO (humaLOG) 300 UNIT/3 ML VIAL SQ SCH ×7 (08:59→22:04)
[2016-02-26] MEDS: FUROSEMIDE 10 MG/ML 2 ML VIAL IV SCH (09:01)
[2016-02-26] MEDS: predniSONE 10 MG TAB PO SCH ×2 (09:01→20:44)
[2016-02-26] MEDS: REPAGLINIDE 1 MG TAB PO SCH ×3 (09:01→17:11)
[2016-02-26] MEDS: CARVEDILOL 12.5 MG TAB PO SCH ×2 (09:02→17:11)
[2016-02-26] MEDS: DOCUSATE 100 MG CAP PO SCH (09:02)
[2016-02-26] MEDS: FAMOTIDINE 20 MG TAB PO SCH (09:03)
[2016-02-26 10:50] LABS: Glucose,Whole Blood 212 mg/dL (75-99)
--- NOTE | 2016-02-26 11:17 | P.PN ---
Subjective Patient is seen in follow-up for acute kidney injury. Patient has chronic kidney disease stage III secondary to diabetic kidney disease with baseline creatinine near 2 from March 2014. Creatinine this admission peaked at 5.18 and did start to improve however is up to 5.0 to again today. He was started on his own for presumed ALLERGIC interstitial nephritis on February 22. Admits to good urine output. No vomiting or diarrhea. Denies chest pain. Does admit to some dyspnea especially when laying flat. Vital signs are stable. General: The patient appeared well nourished and normally developed. HEENT: Head exam is unremarkable. Neck is without jugular venous distension. LUNGS: Lungs are clear to auscultation and percussion. Breath sounds decreased. HEART: Rate and Rhythm are regular. First and second heart sounds normal. No murmurs, rubs or gallops. ABDOMEN: Abdominal exam reveals normal bowel sounds. Non-tender and non- distended. No evidence of peritonitis. EXTREMITITES: 1+ edema. Objective - Vital Signs Vital signs: Vital Signs Temp 96.7 F L 02/26/16 06:28 Pulse 52 L 02/26/16 06:28 Resp 16 02/26/16 06:28 BP 143/67 02/26/16 06:28 Pulse Ox 97 02/26/16 07:38 Intake & Output 02/25/16 02/26/16 02/26/16 18:59 06:59 18:59 Output Total 1065 200 200 Balance -1065 -200 -200 Output: Urine 565 200 200 Stool 500 Other: Voiding Method Urinal Urinal Urinal # Voids 2 - Labs CBC & Chem 7: 02/26/16 06:57 02/26/16 06:57 Labs: Abnormal Lab Results - Last 24 Hours (Table) 02/25/16 02/25/16 02/25/16 Range/Units 11:27 16:52 21:13 RBC (4.30-5.90) m/uL Hgb (13.0-17.5) gm/dL Hct (39.0-53.0) % Plt Count (150-450) k/uL Sodium (137-145) mmol/L Potassium (3.5-5.1) mmol/L Carbon Dioxide (22-30) mmol/L BUN (9-20) mg/dL Creatinine (0.66-1.25) mg/dL Glucose (74-99) mg/dL POC Glucose (mg/dL) 238 H 239 H 239 H (75-99) mg/dL Calcium (8.4-10.2) mg/dL 02/26/16 02/26/16 02/26/16 Range/Units 06:55 06:57 06:57 RBC 3.20 L (4.30-5.90) m/uL Hgb 9.6 L (13.0-17.5) gm/dL Hct 27.8 L (39.0-53.0) % Plt Count 87 L (150-450) k/uL Sodium 134 L (137-145) mmol/L Potassium 5.5 H (3.5-5.1) mmol/L Carbon Dioxide 21 L (22-30) mmol/L BUN 97 H* (9-20) mg/dL Creatinine 5.02 H* (0.66-1.25) mg/dL Glucose 160 H (74-99) mg/dL POC Glucose (mg/dL) 157 H (75-99) mg/dL Calcium 6.8 L (8.4-10.2) mg/dL 02/26/16 Range/Units 10:43 RBC (4.30-5.90) m/uL Hgb (13.0-17.5) gm/dL Hct (39.0-53.0) % Plt Count (150-450) k/uL Sodium (137-145) mmol/L Potassium (3.5-5.1) mmol/L Carbon Dioxide (22-30) mmol/L BUN (9-20) mg/dL Creatinine (0.66-1.25) mg/dL Glucose (74-99) mg/dL POC Glucose (mg/dL) 212 H (75-99) mg/dL Calcium (8.4-10.2) mg/dL Assessment and Plan Plan: Assessment: #1. Nonoliguric acute kidney injury secondary to ischemic ATN secondary to use of diuretics and DEBI inhibitor along with poor oral intake. There may also be ALLERGIC interstitial nephritis in view of multiple white cells noted in the urine. Urine eosinophils negative. Also question the progression of his underlying chronic kidney disease. Will also rule out glomerulonephritis. Creatinine up to 5.02 today. #2. Chronic kidney disease stage III secondary to diabetic kidney disease with baseline creatinine near 2 from March 2014. #3. Insulin-dependent diabetes mellitus. #4. Mild hyperkalemia secondary to metabolic acidosis, acute kidney injury as well as hyperglycemia. #5. Metabolic acidosis secondary to acute kidney injury. Plan: Maintain steroids. Currently on prednisone 60 mg daily that was started on February 22. Check serologic workup including YUNIOR, complement levels, serum light chain analysis. Avoid nephrotoxic agents and hypotensive episodes. Check renal ultrasound. Pending results, will consider kidney biopsy. If no improvement in the renal function the next 24-48 hours, will initiate renal replacement therapy. This was discussed with the patient and he is in agreement with the plan.
[2016-02-26] MEDS: ASPIRIN 81 MG CHEW PO SCH (11:32)
[2016-02-26] MEDS: SOTALOL 120 MG TAB PO SCH ×2 (11:33→22:07)
[2016-02-26 11:53] LABS: Hepatitis B Surface Ag Index 0.07
[2016-02-26 11:59] LABS: Hepatitis B Core IgM Index 0.06
[2016-02-26 12:11] LABS: Hepatitis C Virus IgG Index 0.09
[2016-02-26 12:18] LABS: Hepatitis C Virus IgG Ab Negative (Negative)
--- NOTE | 2016-02-26 12:56 | US ---
EXAMINATION TYPE: US kidneys/renal and bladder DATE OF EXAM: 02/26/2016 12:18 PM COMPARISON: CT 02/21/2016, ultrasound 10/25/2010 CLINICAL HISTORY: STEPHANIE, right flank pain. EXAM MEASUREMENTS: Right Kidney: 10.7 x 4.6 x 4.8cm Left Kidney: 13.9 x 5.7 x 5.9cm ANATOMY: Exam limited by body habitus. Right Kidney: superior cyst seen measuring1.7 x 1.6 x 1.5cm Left Kidney: stone measuring 0.5 x 0.3 x 0.4cm Bladder: not fully distended There is no evidence for hydronephrosis. Reduced differentiation between the renal cortical medullary junction. IMPRESSION: 1. Nonobstructing left renal stone measuring 5 mm 2. 1.7 cm hypoechoic lesion involving the right kidney indeterminate by ultrasound criteria. However it appears stable relative to 10/25/2010 ultrasound. 3. Correlate for chronic medical renal disease.
[2016-02-26 18:04] LABS: Glucose,Whole Blood 194 mg/dL (75-99)
--- NOTE | 2016-02-26 20:03 | PN ---
Patient is admitted secondary to acute renal failure, multifactorial, mostly related to ( ) management ( ) and diuretic therapy. Patient was receiving diuretics, received diuretics yesterday because of peripheral edema which after talking with Dr. Da Silva nephrology holding his diuretic therapy. Patient at this point of time, patient kidney function continued to worsen and BUN of 97, creatinine of 5.02, sodium did improve. Potassium is 5.5. REVIEW OF SYSTEMS: CARDIOVASCULAR: No chest pain, no orthopnea, no PND, no palpitations. PULMONARY: Denied any shortness of breath. No cough or hemoptysis. GASTROINTESTINAL: No diarrhea, nausea or vomiting. No abdominal pain. Normoactive bowel sounds. NEUROLOGIC: No headaches, no weakness, no numbness. Medications are reviewed. PHYSICAL EXAMINATION: Temperature 97.0, pulse of 58, respiratory rate of 20, blood pressure is 148/89, saturating at 96% on 2 liters of O2 by nasal cannula. GENERAL: The patient is alert and oriented x3, not in any acute distress. Well developed, well nourished. HEENT: Pupils are round and equally reacting to light. EOMI. No scleral icterus. No conjunctival pallor. Normocephalic, atraumatic. No pharyngeal erythema. No thyromegaly. CARDIOVASCULAR: S1 and S2 present. No murmurs, rubs, or gallops. PULMONARY: Chest is clear to auscultation, no wheezing or crackles. ABDOMEN: Soft, nontender, nondistended, normoactive bowel sounds. No palpable organomegaly. MUSCULOSKELETAL: No joint swelling or deformity. NEUROLOGICAL: Gross neurological examination did not reveal any focal deficits. SKIN: No rashes. EXTREMITIES: Patient does have pitting pedal edema. Bilateral lower extremities 2+. Patient does have some abdominal wall edema. Patient probably has right-sided heart failure. ASSESSMENT AND PLAN: 1. Acute renal failure secondary to acute tubular necrosis with acute interstitial nephritis and chronic kidney disease, stage III to IV secondary to diabetic nephropathy. Baseline creatinine is around 2. 2. Morbid obesity. 3. Benign prostatic hypertrophy. 4. Coronary artery disease. 5. Type 2 diabetes mellitus. 6. Gastroesophageal reflux disease. 7. Essential hypertension. 8. Hyperkalemia due to renal failure. 9. Nonanion gap metabolic acidosis. The plan is to continue the present medications, continue to monitor kidney function. I will leave the decision of Kayexelate to pulmonary. Hold off on Lasix and possibility of dialysis if his kidney function continues to remain stable or worsen. Patient will continue with systemic steroids for allergic interstitial nephritis.
[2016-02-26 20:37] LABS: Glucose,Whole Blood 177 mg/dL (75-99)
[2016-02-26] MEDS: traMADol 50 MG TAB PO PRN (20:42)
[2016-02-26] MEDS: MAGNESIUM HYDROXIDE 2,400 MG/10 ML CUP PO PRN (20:43)
[2016-02-26] MEDS: ATORVASTATIN 40 MG TAB PO SCH (20:44)
[2016-02-26] MEDS: INSULIN GLARGINE 100 UNIT/ML 10 ML VIAL SQ SCH (22:06)
[2016-02-26] MEDS: LORazepam 2 MG/ML SYRINGE IV PRN (23:37)
[2016-02-27 07:29] LABS: Glucose,Whole Blood 121 mg/dL (75-99)
[2016-02-27 08:15] LABS: Potassium 4.8 mmol/L (3.5-5.1)
[2016-02-27 08:23] LABS: Calcium 6.5 mg/dL (8.4-10.2)
[2016-02-27] MEDS: REPAGLINIDE 1 MG TAB PO SCH ×3 (08:44→18:14)
[2016-02-27] MEDS: INSULIN LISPRO (humaLOG) 300 UNIT/3 ML VIAL SQ SCH ×7 (08:44→21:32)
[2016-02-27] MEDS: CARVEDILOL 12.5 MG TAB PO SCH ×2 (08:44→18:14)
[2016-02-27] MEDS: FAMOTIDINE 20 MG TAB PO SCH (08:45)
[2016-02-27] MEDS: DOCUSATE 100 MG CAP PO SCH (08:45)
[2016-02-27] MEDS: predniSONE 10 MG TAB PO SCH ×2 (08:45→21:31)
--- NOTE | 2016-02-27 08:51 | XR ---
EXAMINATION TYPE: XR chest 2V DATE OF EXAM: 02/26/2016 4:42 PM COMPARISON: 02/21/2016 HISTORY: Rehabilitation placement FINDINGS: Heart is enlarged and a cardiac device again noted. Subsegmental changes at both lung bases. Mild zulema tral interstitial prominence and bilateral effusions noted. Hypertrophic and degenerative change of t he spine. IMPRESSION: 1. Correlate for mild CHF
--- NOTE | 2016-02-27 10:11 | P.PN ---
Subjective Patient is seen in follow-up for acute kidney injury. Patient has chronic kidney disease stage III secondary to diabetic kidney disease with baseline creatinine near 2 from March 2014. Creatinine this admission peaked at 5.18 and is improved to 4.74 today. 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 Admits to good urine output. No vomiting or diarrhea. Denies chest pain. Vital signs are stable. General: The patient appeared well nourished and normally developed. HEENT: Head exam is unremarkable. Neck is without jugular venous distension. LUNGS: Lungs are clear to auscultation and percussion. Breath sounds decreased. HEART: Rate and Rhythm are regular. First and second heart sounds normal. No murmurs, rubs or gallops. ABDOMEN: Abdominal exam reveals normal bowel sounds. Non-tender and non- distended. No evidence of peritonitis. EXTREMITITES: 1+ edema. Objective - Vital Signs Vital signs: Vital Signs Temp 97.9 F 02/27/16 07:00 Pulse 52 L 02/27/16 07:00 Resp 18 02/27/16 07:00 BP 151/73 02/27/16 07:00 Pulse Ox 97 02/27/16 07:00 Intake & Output 02/26/16 02/27/16 02/27/16 18:59 06:59 18:59 Intake Total 800 Output Total 582 1200 Balance -582 -400 Intake: IV 200 0.9 @ 20 200 Oral 600 Output: Urine 500 500 Post Void Residual 82 200 Stool 500 Other: Voiding Method Urinal Urinal # Voids 2 # Bowel Movements 1 - Labs CBC & Chem 7: 02/26/16 06:57 02/27/16 07:13 Labs: Abnormal Lab Results - Last 24 Hours (Table) 02/26/16 02/26/16 02/26/16 Range/Units 06:57 10:43 17:03 Sodium (137-145) mmol/L Carbon Dioxide (22-30) mmol/L BUN (9-20) mg/dL Creatinine (0.66-1.25) mg/dL Glucose (74-99) mg/dL POC Glucose (mg/dL) 212 H 194 H (75-99) mg/dL Calcium (8.4-10.2) mg/dL Complement C3 72 L (88-165) mg/dL 02/26/16 02/27/1616 Range/Units 20:05 07:13 07:28 Sodium 132 L (137-145) mmol/L Carbon Dioxide 18 L (22-30) mmol/L BUN 99 H* (9-20) mg/dL Creatinine 4.74 H (0.66-1.25) mg/dL Glucose 122 H (74-99) mg/dL POC Glucose (mg/dL) 177 H 121 H (75-99) mg/dL Calcium 6.5 L* (8.4-10.2) mg/dL Complement C3 (88-165) mg/dL Microbiology - Last 24 Hours (Table) 02/25/16 09:00 Gram Stain - Preliminary Sputum Assessment and Plan Plan: Assessment: #1. Nonoliguric acute kidney injury secondary to ischemic ATN secondary to use of diuretics and DEBI inhibitor along with poor oral intake. There may also be ALLERGIC interstitial nephritis in view of multiple white cells noted in the urine. Urine eosinophils negative. Also question the progression of his underlying chronic kidney disease. Will also rule out glomerulonephritis - C3 level low at 72.. Creatinine improved to 4.74 today. Ultrasound does suggest chronic kidney disease. #2. Chronic kidney disease stage III secondary to diabetic kidney disease with baseline creatinine near 2 from March 2014. #3. Insulin-dependent diabetes mellitus. #4. Mild hyperkalemia secondary to metabolic acidosis, acute kidney injury as well as hyperglycemia. #5. Metabolic acidosis secondary to acute kidney injury. Plan: Maintain steroids. Currently on prednisone 60 mg daily that was started on February 22. Follow-up serologic studies. Avoid nephrotoxic agents and hypotensive episodes. Schedule for kidney biopsy. Start oral sodium bicarbonate. Continue to assess on a day-to-day basis for the need for renal replacement therapy. This was discussed with the patient and he is in agreement with the plan.
[2016-02-27 11:28] LABS: Free Kappa Lt Chain Qnt, Serum 22.96 mg/dL (0.33 - 1.94); Kappa/Lambda Light Chain Ratio 1.45 (0.26 - 1.65)
[2016-02-27 12:04] LABS: Glucose,Whole Blood 126 mg/dL (75-99)
[2016-02-27] MEDS: SODIUM BICARBONATE TAB 650 MG TAB PO SCH ×2 (12:45→21:32)
[2016-02-27] MEDS: SOTALOL 120 MG TAB PO SCH ×2 (12:46→21:32)
--- NOTE | 2016-02-27 13:04 | PN ---
Patient is admitted with acute renal failure, multifactorial. Patient will need biopsy. The patient's renal failure fairly remained stable and patient is off diuretic therapy although patient does have edema. I will obtain an echocardiogram to see if there is any right-sided heart failure. Patient is being treated for allergic interstitial nephritis. Unfortunately as patient is on aspirin, interventional radiology is not willing to do kidney biopsy until about a week. Will obtain an echocardiogram to assess for pulmonary hypertension. REVIEW OF SYSTEMS: CARDIOVASCULAR: No chest pain, no orthopnea, no PND, no palpitations. PULMONARY: Denied any shortness of breath. No cough or hemoptysis. GASTROINTESTINAL: No diarrhea, nausea or vomiting. No abdominal pain. Normoactive bowel sounds. NEUROLOGIC: No headaches, no weakness, no numbness. Medications were reviewed. PHYSICAL EXAMINATION: Temperature 97.9, pulse of 52, respiratory rate of 18, blood pressure is 151/73, saturating at 97% on 2 L of O2 by nasal cannula. GENERAL: The patient is morbidly obese. HEENT: Pupils are round and equally reacting to light. EOMI. No scleral icterus. No conjunctival pallor. Normocephalic, atraumatic. No pharyngeal erythema. No thyromegaly. CARDIOVASCULAR: S1 and S2 present. No murmurs, rubs, or gallops. PULMONARY: Chest is clear to auscultation, no wheezing or crackles. ABDOMEN: Soft, nontender, nondistended, normoactive bowel sounds. No palpable organomegaly. MUSCULOSKELETAL: No joint swelling or deformity. EXTREMITIES: The patient does have 2+ ( ) edema. NEUROLOGICAL: Gross neurological examination did not reveal any focal deficits. SKIN: No rashes. The patient does have abdominal wall edema as well. LABORATORY DATA: Sodium is 132. BUN is 99, bicarbonate 18, and creatinine is 4.74. ASSESSMENT AND PLAN: 1. Acute renal failure secondary to acute tubular necrosis with acute interstitial nephritis as well as chronic kidney disease. The patient does have chronic kidney disease stage II, now patient chronic kidney disease ( ) most of it hopefully is acute and patient does have diabetic nephropathy. The patient will need kidney biopsy as mentioned above. 2. Morbid obesity. 3. Benign prostatic hypertrophy. 4. Peripheral edema, possibly related to pulmonary hypertension and right-sided heart failure. I will obtain an echocardiogram to evaluate for that. 5. Coronary artery disease. 6. Type 2 diabetes mellitus. 7. Gastroesophageal reflux disease. 8. Essential hypertension. 9. Hyperkalemia, which resolved with Kayexalate. 10. Non-anion gap metabolic acidosis secondary to anemia from kidney disease. Patient is a systemic steroids and continue to hold off on Lasix in spite of peripheral edema as Lasix appeared to be worsening his renal function due to intravascular volume depletion.
[2016-02-27 13:51] LABS: C-ANCA <1:20 Titer (<1:20); P-ANCA <1:20 Titer (<1:20)
[2016-02-27 16:57] LABS: Glucose,Whole Blood 139 mg/dL (75-99)
[2016-02-27] MEDS: traMADol 50 MG TAB PO PRN (19:39)
[2016-02-27 20:06] LABS: Glucose,Whole Blood 158 mg/dL (75-99)
[2016-02-27] MEDS: ATORVASTATIN 40 MG TAB PO SCH (21:32)
[2016-02-27] MEDS: INSULIN GLARGINE 100 UNIT/ML 10 ML VIAL SQ SCH (21:32)
[2016-02-27] MEDS: LORazepam 2 MG/ML SYRINGE IV PRN (21:34)
[2016-02-28 07:13] LABS: Glucose,Whole Blood 75 mg/dL (75-99)
[2016-02-28] MEDS: INSULIN LISPRO (humaLOG) 300 UNIT/3 ML VIAL SQ SCH ×7 (07:19→21:08)
[2016-02-28] MEDS: CARVEDILOL 12.5 MG TAB PO SCH ×2 (07:20→17:01)
[2016-02-28] MEDS: predniSONE 10 MG TAB PO SCH ×2 (07:21→21:08)
[2016-02-28] MEDS: SODIUM BICARBONATE TAB 650 MG TAB PO SCH ×4 (07:21→21:08)
[2016-02-28] MEDS: REPAGLINIDE 1 MG TAB PO SCH ×3 (07:21→17:02)
[2016-02-28] MEDS: FAMOTIDINE 20 MG TAB PO SCH (07:21)
[2016-02-28] MEDS: DOCUSATE 100 MG CAP PO SCH (07:22)
--- NOTE | 2016-02-28 07:49 | ECHOF ---
Referral Reason:Pul HTN MEASUREMENTS -------- HEIGHT: 218.4 cm WEIGHT: 146.5 kg BP: 151/73 RVIDd: 3.4 cm (< 3.3) IVSd: 1.2 cm (0.6 - 1.1) LVIDd: 6.1 cm (3.9 - 5.3) LVPWd: 1.2 cm (0.6 - 1.1) IVSs: 1.9 cm LVIDs: 4.3 cm LVPWs: 1.9 cm Ao Diam: 3.1 cm (2.0 - 3.7) AV Cusp: 1.2 cm (1.5 - 2.6) LA Diam: 3.7 cm (2.7 - 3.8) MV EXCURSION: 14.837 mm (> 18.000) MV EF SLOPE: 31 mm/s (70 - 150) EPSS: 2.4 cm MV E Ricardo: 0.70 m/s MV DecT: 413 ms MV A Ricardo: 0.74 m/s MV E/A Ratio: 0.95 RAP: 5.00 mmHg RVSP: 31.76 mmHg FINDINGS -------- Resting bradycardia (HR<60bpm). Pacerwire seen in RV and RA. This was a technically difficult study with suboptimal views. The left ventricle is mildly dilated. There is mild concentric left ventricular hypertrophy. Overall left ventricular systolic function is normal with, an EF between 55 - 60 %. The right ventricle is mildly enlarged. The left atrial size is normal. The right atrium is normal in size. 1.5MG OF DEFINITY UTLIZED: 2 OR MORE WALL SEGMENTS NOT VISUALIZED. The aortic valve was not well visualized. The mitral valve leaflets are mildly thickened. Mild mitral annular calcification present. Mild tricuspid regurgitation present. There is no evidence of pulmonary hypertension. The right ventricular systolic pressure, as measured by Doppler, is 31.76mmHg. The pulmonic valve was not well visualized. The aortic root size is normal. The inferior vena cava is mildly dilated. The pericardium is normal. CONCLUSIONS -------- 1. Resting bradycardia (HR<60bpm). 2. 1.5MG OF DEFINITY UTLIZED: 2 OR MORE WALL SEGMENTS NOT VISUALIZED. 3. The aortic valve was not well visualized. 4. The mitral valve leaflets are mildly thickened. 5. Mild mitral annular calcification present. 6. Mild tricuspid regurgitation present. 7. There is no evidence of pulmonary hypertension. 8. The right ventricular systolic pressure, as measured by Doppler, is 31.76mmHg. 9. The pulmonic valve was not well visualized. 10. The aortic root size is normal. 11. The inferior vena cava is mildly dilated. 12. Pacerwire seen in RV and RA. 13. The pericardium is normal. 14. This was a technically difficult study with suboptimal views. 15. The left ventricle is mildly dilated. 16. There is mild concentric left ventricular hypertrophy. 17. Overall left ventricular systolic function is normal with, an EF between 55 - 60 %. 18. The right ventricle is mildly enlarged. 19. The left atrial size is normal. 20. The right atrium is normal in size. LEDGE MAN: Arleen Avendaño RDCS
[2016-02-28 08:28] LABS: Calcium 6.8 mg/dL (8.4-10.2); Potassium 5.2 mmol/L (3.5-5.1)
[2016-02-28] MEDS ORDERED: SODIUM BICARB 8.4% 50 ML SYR (1 MEQ/ML) IV STA (10:41)
[2016-02-28] MEDS ORDERED: FUROSEMIDE 10 MG/ML 4 ML VIAL IV STA (10:58)
--- NOTE | 2016-02-28 11:15 | P.PN ---
Subjective Patient is seen in follow-up for acute kidney injury. Patient has chronic kidney disease stage III secondary to diabetic kidney disease with baseline creatinine near 2 from March 2014. Creatinine this admission peaked at 5.18 and is improved to 4.51 today. 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 Admits to good urine output. No vomiting or diarrhea. Denies chest pain. Does admit to labored breathing. Vital signs are stable. General: The patient appeared well nourished and normally developed. HEENT: Head exam is unremarkable. Neck is without jugular venous distension. LUNGS: Lungs are clear to auscultation and percussion. Breath sounds decreased. HEART: Rate and Rhythm are regular. First and second heart sounds normal. No murmurs, rubs or gallops. ABDOMEN: Abdominal exam reveals normal bowel sounds. Non-tender and non- distended. No evidence of peritonitis. EXTREMITITES: 1+ edema. Objective - Vital Signs Vital signs: Vital Signs Temp 96.5 F L 02/28/16 07:00 Pulse 55 L 02/28/16 07:00 Resp 20 02/28/16 07:00 BP 141/76 02/28/16 07:00 Pulse Ox 99 02/28/16 07:48 Intake & Output 02/27/16 02/28/16 02/28/16 18:59 06:59 18:59 Intake Total 160 750 Output Total 27 200 Balance 133 750 -200 Intake: IV 160 160 0.9 @ 20 160 160 Oral 590 Output: Urine 200 Post Void Residual 27 Other: Voiding Method Urinal Urinal Urinal # Voids 450 2 - Labs CBC & Chem 7: 02/26/16 06:57 02/28/16 07:18 Labs: Abnormal Lab Results - Last 24 Hours (Table) 02/26/16 02/27/16 02/27/16 Range/Units 06:57 12:03 16:55 Sodium (137-145) mmol/L Potassium (3.5-5.1) mmol/L Carbon Dioxide (22-30) mmol/L BUN (9-20) mg/dL Creatinine (0.66-1.25) mg/dL Glucose (74-99) mg/dL POC Glucose (mg/dL) 126 H 139 H (75-99) mg/dL Calcium (8.4-10.2) mg/dL Free [place] LC, Quant 22.96 H (0.33 - 1.94) mg/dL Free [place] LC, Quant 15.82 H (0.57 - 2.63) mg/dL 02/27/16 02/28/16 Range/Units 20:05 07:18 Sodium 132 L (137-145) mmol/L Potassium 5.2 H (3.5-5.1) mmol/L Carbon Dioxide 15 L (22-30) mmol/L BUN 105 H* (9-20) mg/dL Creatinine 4.51 H (0.66-1.25) mg/dL Glucose 73 L (74-99) mg/dL POC Glucose (mg/dL) 158 H (75-99) mg/dL Calcium 6.8 L (8.4-10.2) mg/dL Free [place] LC, Quant (0.33 - 1.94) mg/dL Free [place] LC, Quant (0.57 - 2.63) mg/dL Microbiology - Last 24 Hours (Table) 02/25/16 09:00 Gram Stain - Preliminary Sputum Sputum Culture - Preliminary Assessment and Plan Plan: Assessment: #1. Nonoliguric acute kidney injury secondary to ischemic ATN secondary to use of diuretics and DEBI inhibitor along with poor oral intake. There may also be ALLERGIC interstitial nephritis in view of multiple white cells noted in the urine. Urine eosinophils negative. Also question the progression of his underlying chronic kidney disease. Will also rule out glomerulonephritis - C3 level low at 72.. Creatinine improved to 4.51 today. Ultrasound does suggest chronic kidney disease. #2. Chronic kidney disease stage III secondary to diabetic kidney disease with baseline creatinine near 2 from March 2014. #3. Insulin-dependent diabetes mellitus. #4. Mild hyperkalemia secondary to metabolic acidosis, acute kidney injury as well as hyperglycemia. #5. Metabolic acidosis secondary to acute kidney injury. Plan: Maintain steroids. Currently on prednisone 60 mg daily that was started on February 22. Follow-up serologic studies. Avoid nephrotoxic agents and hypotensive episodes. Kidney biopsy scheduled for March 04 as the patient was on aspirin. 2 A of sodium bicarbonate IV push. Increase dose of oral sodium bicarbonate supplementation. Lasix 40 mg IV once today. Continue to assess on a day-to-day basis for the need for renal replacement therapy. This was discussed with the patient and he is in agreement with the plan.
[2016-02-28 11:46] LABS: Glucose,Whole Blood 211 mg/dL (75-99)
[2016-02-28] MEDS: SOTALOL 120 MG TAB PO SCH ×2 (12:24→21:08)
--- NOTE | 2016-02-28 12:42 | PN ---
The patient is admitted with acute renal failure, which is multifactorial and which is secondary to diuretic therapy and allergic interstitial nephritis secondary to diuretic therapy. Patient will need a kidney biopsy. Unfortunately, our interventional radiologist is not willing to do as he received aspirin yesterday. Will try and discuss the interventional radiologist here. The patient has significant edema because of which I obtained an echocardiogram to see if patient has any pulmonary hypertension, although patient does not have any pulmonary hypertension. Patient's ejection fraction is normal. Patient's edema is probably related to his kidney dysfunction itself. Patient has quite a bit of edema REVIEW OF SYSTEMS: GENERAL: Patient is fatigued a little bit. CARDIOVASCULAR: No chest pain, no orthopnea, no PND, no palpitations. PULMONARY: Denied any shortness of breath. No cough or hemoptysis. GASTROINTESTINAL: No diarrhea, nausea or vomiting. No abdominal pain. Normoactive bowel sounds. NEUROLOGIC: No headaches, no weakness, no numbness. Medications were reviewed. PHYSICAL EXAMINATION: VITAL SIGNS: Temperature 96.5, pulse of 55, respiratory rate 20, blood pressure is 141/76, saturating at 99% on room air. GENERAL: Morbidly obese. Alert and oriented x3. HEENT: Pupils are round and equally reacting to light. EOMI. No scleral icterus. No conjunctival pallor. Normocephalic, atraumatic. No pharyngeal erythema. No thyromegaly. CARDIOVASCULAR: S1 and S2 present. No murmurs, rubs, or gallops. PULMONARY: Chest is clear to auscultation, no wheezing or crackles. ABDOMEN: Soft, nontender, nondistended, normoactive bowel sounds. No palpable organomegaly. MUSCULOSKELETAL: No joint swelling or deformity. EXTREMITIES: Patient does have significant peripheral edema and abdominal wall edema probably due to renal failure itself. NEUROLOGICAL: Gross neurological examination did not reveal any focal deficits. SKIN: No rashes. ASSESSMENT AND PLAN: 1. Acute renal failure secondary to acute tubular necrosis and allergic interstitial nephritis for which patient is on systemic steroids. 2. Morbid obesity. 3. Severe anasarca and peripheral edema is secondary to acute renal failure and chronic kidney disease. Patient has baseline chronic kidney disease stage II and it may have progressed to chronic kidney disease ( ) now. 4. Coronary artery disease. 5. Type 2 diabetes mellitus. 6. Gastroesophageal reflux disease. 7. Essential hypertension. 8. Hyperkalemia, secondary chronic kidney disease and patient will receive Kayexalate. 9. Non-anion gap metabolic acidosis secondary to uremia from kidney disease. Plan is to continue with a dose of Lasix, monitor kidney function. Patient will need a kidney biopsy.
[2016-02-28 16:56] LABS: Glucose,Whole Blood 237 mg/dL (75-99)
[2016-02-28] MEDS: HEPARIN SODIUM,PORCINE 5,000 UNIT/ML 1 ML VIAL SQ SCH ×2 (17:01→23:26)
[2016-02-28 19:52] LABS: Glucose,Whole Blood 237 mg/dL (75-99)
[2016-02-28] MEDS: ATORVASTATIN 40 MG TAB PO SCH (21:08)
[2016-02-28] MEDS: LORazepam 2 MG/ML SYRINGE IV PRN (21:08)
[2016-02-28] MEDS: INSULIN GLARGINE 100 UNIT/ML 10 ML VIAL SQ SCH (21:08)
[2016-02-29] MEDS: LORazepam 2 MG/ML SYRINGE IV PRN ×2 (03:33→23:04)
[2016-02-29 07:15] LABS: Glucose,Whole Blood 111 mg/dL (75-99)
[2016-02-29] MEDS: INSULIN LISPRO (humaLOG) 300 UNIT/3 ML VIAL SQ SCH ×7 (08:06→20:40)
[2016-02-29] MEDS: HEPARIN SODIUM,PORCINE 5,000 UNIT/ML 1 ML VIAL SQ SCH ×3 (08:09→23:07)
[2016-02-29] MEDS: predniSONE 10 MG TAB PO SCH ×2 (08:09→20:34)
[2016-02-29] MEDS: CARVEDILOL 12.5 MG TAB PO SCH ×2 (08:09→17:17)
[2016-02-29] MEDS: DOCUSATE 100 MG CAP PO SCH (08:09)
[2016-02-29] MEDS: SODIUM BICARBONATE TAB 650 MG TAB PO SCH ×4 (08:09→20:34)
[2016-02-29] MEDS: REPAGLINIDE 1 MG TAB PO SCH ×3 (08:09→17:17)
[2016-02-29] MEDS: FAMOTIDINE 20 MG TAB PO SCH (08:10)
[2016-02-29] MEDS: traMADol 50 MG TAB PO PRN ×2 (08:14→21:53)
[2016-02-29 08:16] LABS: Calcium 6.8 mg/dL (8.4-10.2); Potassium 5.3 mmol/L (3.5-5.1)
[2016-02-29 11:18] LABS: Glucose,Whole Blood 179 mg/dL (75-99)
[2016-02-29] MEDS: SOTALOL 120 MG TAB PO SCH ×2 (12:46→22:12)
--- NOTE | 2016-02-29 16:14 | PN ---
Patient is seen for followup for acute kidney injury which is possibly ATN versus acute interstitial nephritis. Patient is scheduled for kidney biopsy early next week. He is maintained on prednisone. Renal function has been about the same, with serum creatinine staying at about 4.5 mg/dL. Patient states he has had good urine output. He denies any nausea, vomiting, abdominal pain or diarrhea. BUN is disproportionately elevated secondary to steroids. On examination, blood pressure is 141/69. Heart rate is 52 per minute. He is afebrile. EXAMINATION OF THE HEART: S1 and S2. EXAMINATION OF THE LUNGS: Bilateral breath sounds are heard. ABDOMEN: Soft, obese. Examination of lower extremities shows edema 2+ bilaterally. Labs show sodium 132, potassium 5.3, chloride 102, BUN 107, serum creatinine 4.54. ASSESSMENT: 1. Acute kidney injury, possible acute interstitial nephritis versus acute tubular necrosis, scheduled for kidney biopsy, currently maintained on empiric prednisone, which we will continue for now. No need to initiate renal replacement therapy at this time. The BUN is disproportionately elevated from steroids. 2. Chronic kidney disease secondary to diabetic kidney disease with baseline creatinine around 2 from March 2014. 3. Mild hyperkalemia. Continue to monitor for now. PLAN: Encourage increased oral intake. Will maintain patient on oral Lasix and await kidney biopsy.
[2016-02-29 16:41] LABS: Glucose,Whole Blood 172 mg/dL (75-99)
[2016-02-29] MEDS: ATORVASTATIN 40 MG TAB PO SCH (20:34)
[2016-02-29 20:37] LABS: Glucose,Whole Blood 186 mg/dL (75-99)
[2016-02-29] MEDS: INSULIN GLARGINE 100 UNIT/ML 10 ML VIAL SQ SCH (20:41)
--- NOTE | 2016-02-29 22:18 | PN ---
DATE OF SERVICE: 02/29/2016 This 75-year-old gentleman who was admitted with acute renal failure, possibly acute tubular necrosis, possible interstitial nephritis being closely monitored at this time. The patient is evaluated by nephrology. The patient is on empiric steroids also. Increased p.o. intake was also noted and being planned at this time. Renal replacement therapy is on hold at this time. PAST MEDICAL HISTORY: Reviewed. REVIEW OF SYSTEMS: CARDIOVASCULAR: No angina or palpitations. RESPIRATORY: As mentioned earlier. GASTROINTESTINAL: as mentioned earlier. GENITOURINARY: No numbness, weakness. CENTRAL NERVOUS SYSTEM: No focal deficits. Current medications are reviewed and include: 1. Lipitor 40 mg p.o. q.h.s. 2. Colace 100 mg p.o. daily. 3. Pepcid 10 mg daily. 4. Lasix. 5. Heparin. 6. Lantus. 7. Humalog. 8. Ativan. 9. Milk of magnesia. 10. Nitrostat. 11. Prednisone. 12. Prandin. 13. Silvadene. 14. Betapace. 15. Ultram. PHYSICAL EXAMINATION: The patient is alert and oriented times three. Pulse 52. Blood pressure 160/172, respiratory rate 20, temperature 98.7, pulse ox 98% on 2 L. HEENT: Conjunctivae normal. NECK: No jugular venous distention. CARDIOVASCULAR: S1, S2, muffled. RESPIRATORY: Breath sounds diminished at the bases. A few scattered rhonchi and crackles. ABDOMEN: Soft, obese, nontender. No mass palpable. Legs: Bilateral leg edema. Nervous system: Higher functions as mentioned earlier. Moves all four limbs. No focal deficits. LYMPHATICS: No lymph nodes palpable in the neck, axillae or groin. SKIN: No ulcer, rash or bleeding. LABS: At this time show WBC n, hemoglobin 9.6, creatinine 4.5 for similar. ASSESSMENT: 1. Acute tubular necrosis, possible interstitial nephritis versus acute tubular necrosis scheduled for kidney biopsy currently on empiric steroids. 2. Super morbid obesity with a BMI of 53.1. 3. 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 4. Mild hyperkalemia. 5. Hyponatremia. 6. Increased random blood sugar. 7. Hypocalcemia. 8. Thrombocytopenia. 9. Anemia, normocytic, anemia of chronic disease 10. History of atrial fibrillation. 11. History of coronary artery disease. 12. History of diabetes Type 2. 13. History of deep venous thrombosis. 14. Hypertension. 15. Hyperlipidemia. 16. Degenerative joint disease. 17. History of severe cardiomyopathy. 18. History of chronic back pain. 19. History of automatic implantable cardioverter defibrillator. 20. History of degenerative joint disease. 21. History of anxiety. 22. FULL CODE. RECOMMENDATIONS AND DISCUSSION: In this 75-year-old gentleman who presented with multiple complex medical issues, we will monitor the patient closely. Continue the current medications. Continue symptomatic treatment. Continue the diuretics p.o. Continue the rest of the medications. DVT prophylaxis. Otherwise, I would also recommend follow-up the patient closely with Nephrology. Repeat the labs, possible renal biopsy. Increase ambulation, guarded prognosis. Further recommendations to follow. MTDD
[2016-03-01] MEDS ORDERED: LORazepam 2 MG/ML SYRINGE IV STA (01:44)
[2016-03-01 07:18] LABS: Glucose,Whole Blood 127 mg/dL (75-99)
[2016-03-01 08:00] LABS: Basophils % (A) 0 %; CH 30.7; CHCM 34.4; Eosinophils % (A) 0 %; HCT 28.3 % (39.0-53.0); HGB 9.3 gm/dL (13.0-17.5); Luc # (Auto) 0.13; Luc % (Auto) 2; Lymphocytes # (A) 0.5 k/uL (1.0-4.8); Lymphocytes % (A) 9 %; MCH 29.3 pg (25.0-35.0); MCHC 32.7 g/dL (31.0-37.0); MCV 89.7 fL (80.0-100.0); Mean Platelet Volume 7.9; Monocytes # (A) 0.3 k/uL (0-1.0); Monocytes % (A) 5 %; Neutrophils % (A) 83 %; RBC 3.16 m/uL (4.30-5.90); RDW 14.1 % (11.5-15.5); WBC 5.9 k/uL (3.8-10.6); WBC (Perox) 5.94
[2016-03-01 08:03] LABS: Potassium 5.6 mmol/L (3.5-5.1)
[2016-03-01] MEDS: INSULIN LISPRO (humaLOG) 300 UNIT/3 ML VIAL SQ SCH ×7 (08:21→20:50)
[2016-03-01] MEDS: FAMOTIDINE 20 MG TAB PO SCH (09:01)
[2016-03-01] MEDS: SODIUM BICARBONATE TAB 650 MG TAB PO SCH ×4 (09:03→20:50)
[2016-03-01] MEDS: CARVEDILOL 12.5 MG TAB PO SCH ×2 (09:03→17:30)
[2016-03-01] MEDS: REPAGLINIDE 1 MG TAB PO SCH ×3 (09:03→17:31)
[2016-03-01] MEDS: DOCUSATE 100 MG CAP PO SCH (09:03)
[2016-03-01] MEDS: FUROSEMIDE 40 MG TAB PO SCH (09:03)
[2016-03-01] MEDS: HEPARIN SODIUM,PORCINE 5,000 UNIT/ML 1 ML VIAL SQ SCH ×3 (09:04→23:22)
[2016-03-01] MEDS: predniSONE 10 MG TAB PO SCH ×2 (09:05→20:49)
[2016-03-01] MEDS ORDERED: SODIUM POLYSTYRENE SULFONATE 15 GM/60 ML BOTTLE PO STA (09:21)
[2016-03-01 11:12] LABS: Glucose,Whole Blood 137 mg/dL (75-99)
[2016-03-01] MEDS: SOTALOL 120 MG TAB PO SCH ×2 (11:32→20:49)
--- NOTE | 2016-03-01 15:18 | PN ---
Patient is seen for follow-up for acute kidney injury secondary to possible acute interstitial nephritis. He is maintained on empiric prednisone and is scheduled for a kidney biopsy on 03/04/2016. Currently the patient is sitting up. He is comfortable. He denies any significant complaints. No significant nausea or vomiting noted. No chest pains or shortness of breath. Blood pressure is 147/98, heart rate 50 per minute. He is afebrile. Examination of the heart ( ) Examination of the lower extremities shows edema 1+ bilaterally. Abdomen is soft, obese, nontender. Labs show sodium 133, potassium 5.6, BUN 109, serum creatinine 4.4. Calcium is 7.0. ASSESSMENT: 1. Acute kidney injury, acute tubular necrosis versus acute interstitial nephritis maintained on empiric steroids. Serologies are negative thus far with mildly decreased C3 and some elevation in ( ) chains with the ratio being within normal range. Patient is scheduled for kidney biopsy on 03/04/2016. 2. Mild hyperkalemia associated with renal failure. The patient will be maintained on a low potassium diet. I will give him a dose of Kayexalate and repeat labs in a.m. 3. Chronic kidney disease secondary to diabetic kidney disease. Baseline creatinine around 2 from March 2014. PLAN: Continue Lasix, maintain patient on low potassium diet and kidney biopsy on 03/04/2016.
[2016-03-01 17:20] LABS: Glucose,Whole Blood 173 mg/dL (75-99)
[2016-03-01 20:29] LABS: Glucose,Whole Blood 225 mg/dL (75-99)
[2016-03-01] MEDS: MELATONIN 5 MG TABLET PO SCH (20:48)
[2016-03-01] MEDS: ATORVASTATIN 40 MG TAB PO SCH (20:49)
[2016-03-01] MEDS: INSULIN GLARGINE 100 UNIT/ML 10 ML VIAL SQ SCH (20:52)
[2016-03-01] MEDS: traMADol 50 MG TAB PO PRN (20:55)
--- NOTE | 2016-03-01 22:35 | PN ---
DATE OF SERVICE: 03/01/2016 This 75-year-old gentleman who was admitted with acute tubular necrosis also had possible interstitial nephritis. The patient is awaiting kidney biopsy at this time. The patient being closely monitored. Creatinine is still elevated. Nephrology is following the patient closely. On exam, alert and oriented times three, pulse 50, blood pressure 147/92, respiratory rate 22, temperature 97.1, pulse ox 100% on 3 L. HEENT: Conjunctivae normal. NECK: No jugular venous distention. RESPIRATORY: Breath sounds diminished at the bases. Scattered rhonchi and crackles. ABDOMEN: Soft, obese, nontender. No mass palpable. Legs: No edema. No swelling. CENTRAL NERVOUS SYSTEM: No focal deficits. LABS: WBC 5.1, hemoglobin 9.1, sodium 133, potassium 5.6. Creatinine is 4.40. ASSESSMENT: 1. Acute tubular necrosis with acute renal failure with possible interstitial nephritis versus acute tubular necrosis scheduled kidney biopsy currently on empiric steroids. 2. Super morbid obesity with a BMI of 53.1. 3. Chronic kidney disease secondary to diabetic kidney disease stage III. 4. Mild hyperkalemia. 5. Hypokinesia. 6. Hyponatremia. 7. Increased random blood sugar. 8. Hypocalcemia. 9. Thrombocytopenia. 10. Anemia, normocytic, anemia of chronic disease. 11. History of atrial fibrillation. 12. History of coronary artery disease. 13. History of diabetes mellitus type 2. 14. History of deep venous thrombosis. 15. Hypertension. 16. Hyperlipidemia. 17. History of degenerative joint disease. 18. History of cardiomyopathy. 19. History of chronic back pain. 20. History of automatic implantable cardioverter defibrillator. 21. History of degenerative joint disease. 22. History of anxiety. 23. FULL CODE. RECOMMENDATIONS AND DISCUSSION: Recommend to continue current medications, continue symptomatic treatment, otherwise continue steroids. Continue the rest of the medications, possible renal biopsy per nephrology. Continue the low potassium diet. Kidney biopsy is planned on 03/04/[address] Payan. Guarded prognosis. Further recommendations to follow.
[2016-03-02 07:36] LABS: Glucose,Whole Blood 95 mg/dL (75-99)
[2016-03-02 07:56] LABS: Basophils % (A) 0 %; CH 30.4; CHCM 35.4; Eosinophils % (A) 0 %; HCT 26.9 % (39.0-53.0); HDW 3.04; HGB 9.5 gm/dL (13.0-17.5); Luc # (Auto) 0.14; Luc % (Auto) 3; Lymphocytes # (A) 0.5 k/uL (1.0-4.8); Lymphocytes % (A) 9 %; MCH 30.5 pg (25.0-35.0); MCHC 35.2 g/dL (31.0-37.0); MCV 86.4 fL (80.0-100.0); Mean Platelet Volume 7.8; Monocytes # (A) 0.3 k/uL (0-1.0); Monocytes % (A) 5 %; Neutrophils # (A) 4.6 k/uL (1.3-7.7); Neutrophils % (A) 83 %; RBC 3.11 m/uL (4.30-5.90); RDW 13.8 % (11.5-15.5); WBC 5.6 k/uL (3.8-10.6); WBC (Perox) 5.75
[2016-03-02 08:13] LABS: Calcium 7.1 mg/dL (8.4-10.2); Potassium 5.3 mmol/L (3.5-5.1)
[2016-03-02] MEDS: SODIUM BICARBONATE TAB 650 MG TAB PO SCH ×4 (08:19→20:25)
[2016-03-02] MEDS: REPAGLINIDE 1 MG TAB PO SCH ×3 (08:19→17:39)
[2016-03-02] MEDS: HEPARIN SODIUM,PORCINE 5,000 UNIT/ML 1 ML VIAL SQ SCH ×3 (08:19→23:36)
[2016-03-02] MEDS: FUROSEMIDE 40 MG TAB PO SCH (08:19)
[2016-03-02] MEDS: FAMOTIDINE 20 MG TAB PO SCH (08:20)
[2016-03-02] MEDS: predniSONE 10 MG TAB PO SCH ×2 (08:20→20:24)
[2016-03-02] MEDS: CARVEDILOL 12.5 MG TAB PO SCH ×2 (08:20→17:40)
[2016-03-02] MEDS: DOCUSATE 100 MG CAP PO SCH (08:20)
[2016-03-02] MEDS: INSULIN LISPRO (humaLOG) 300 UNIT/3 ML VIAL SQ SCH ×7 (08:21→20:24)
[2016-03-02 11:26] LABS: Glucose,Whole Blood 176 mg/dL (75-99)
[2016-03-02] MEDS: SOTALOL 120 MG TAB PO SCH ×2 (12:00→20:25)
[2016-03-02] MEDS ORDERED: FUROSEMIDE 10 MG/ML 4 ML VIAL IV STA (14:19)
--- NOTE | 2016-03-02 14:37 | PN ---
Patient is seen for follow-up for acute kidney injury. At this time, he is maintained on empiric steroids for possible ( ) interstitial nephritis. Renal function remains compromised, but stable with fair amount of urine output. Patient is scheduled for kidney biopsy on 03/04/2016. He is being evaluated on a daily basis for need for renal replacement therapy and so far he has been doing okay. On examination, blood pressure 162/73, heart rate 50 per minute. He is afebrile. Examination of the heart S1 and S2. Examination of the lungs: Bilateral breath sounds are heard. ABDOMEN: Soft, nontender, obese. Examination of lower extremities shows edema 2+ bilaterally, currently legs are wrapped. REAL ESTATE PROCESSOR exam is grossly intact. Labs show sodium 132, potassium 5.3, BUN 112, serum creatinine 4.3. Hemoglobin 9.5 g/dL. ASSESSMENT: 1. Acute kidney injury, acute tubular necrosis versus and maintained on empiric steroids. Awaiting kidney biopsy, which is scheduled for 03/04/2016. The BUN is disproportionately elevated from the steroids as well. 2. Hyperkalemia, fairly stable, continue to monitor for now, status post Kayexalate yesterday. Continue with loop diuretics. 3. Volume overload. I will give a dose of IV Lasix today. Continue with oral Lasix as well for now. PLAN: Repeat labs in a.m. Lasix IV push 40 mg x1 today. Continue to avoid nephrotoxic agents.
[2016-03-02 16:59] LABS: Glucose,Whole Blood 114 mg/dL (75-99)
[2016-03-02 20:08] LABS: Glucose,Whole Blood 143 mg/dL (75-99)
[2016-03-02] MEDS: MELATONIN 5 MG TABLET PO SCH (20:24)
[2016-03-02] MEDS: INSULIN GLARGINE 100 UNIT/ML 10 ML VIAL SQ SCH (20:25)
[2016-03-02] MEDS: ATORVASTATIN 40 MG TAB PO SCH (20:25)
[2016-03-03 07:33] LABS: Glucose,Whole Blood 81 mg/dL (75-99)
[2016-03-03 08:02] LABS: Basophils % (A) 0 %; CH 30.3; Eosinophils % (A) 0 %; HCT 27.9 % (39.0-53.0); HDW 2.93; HGB 9.5 gm/dL (13.0-17.5); Luc # (Auto) 0.14; Luc % (Auto) 2; Lymphocytes # (A) 0.6 k/uL (1.0-4.8); Lymphocytes % (A) 9 %; MCH 29.5 pg (25.0-35.0); MCHC 33.9 g/dL (31.0-37.0); MCV 87.1 fL (80.0-100.0); Mean Platelet Volume 7.5; Monocytes # (A) 0.3 k/uL (0-1.0); Monocytes % (A) 4 %; Neutrophils # (A) 5.1 k/uL (1.3-7.7); Neutrophils % (A) 84 %; RDW 13.8 % (11.5-15.5); WBC 6.1 k/uL (3.8-10.6)
[2016-03-03 08:04] LABS: INR 1.2 (<1.1); Prothrombin Time 11.8 sec (9.0-12.0)
[2016-03-03 08:27] LABS: Calcium 7.1 mg/dL (8.4-10.2)
[2016-03-03] MEDS: INSULIN LISPRO (humaLOG) 300 UNIT/3 ML VIAL SQ SCH ×7 (08:27→23:09)
[2016-03-03] MEDS: FAMOTIDINE 20 MG TAB PO SCH (08:29)
[2016-03-03] MEDS: CARVEDILOL 12.5 MG TAB PO SCH ×2 (08:29→17:07)
[2016-03-03] MEDS: SODIUM BICARBONATE TAB 650 MG TAB PO SCH ×4 (08:29→20:44)
[2016-03-03] MEDS: REPAGLINIDE 1 MG TAB PO SCH ×3 (08:29→17:07)
[2016-03-03] MEDS: DOCUSATE 100 MG CAP PO SCH (08:29)
[2016-03-03] MEDS: FUROSEMIDE 40 MG TAB PO SCH (08:29)
[2016-03-03] MEDS: predniSONE 10 MG TAB PO SCH ×2 (08:30→20:43)
[2016-03-03] MEDS: HEPARIN SODIUM,PORCINE 5,000 UNIT/ML 1 ML VIAL SQ SCH ×2 (08:30→16:39)
[2016-03-03 11:23] LABS: Glucose,Whole Blood 149 mg/dL (75-99)
[2016-03-03] MEDS: SOTALOL 120 MG TAB PO SCH ×2 (12:42→20:44)
--- NOTE | 2016-03-03 14:41 | PN ---
DATE OF SERVICE: 03/02/2016 This 75-year-old gentleman who was admitted with acute tubular necrosis with acute renal failure with possible interstitial nephritis is awaiting renal biopsy. The patient seems to be improving slightly. No chest pain. No palpitation. No fever. On exam, alert and oriented x3. Pulse is 104, blood pressure 165/72, respirations 16, temperature 98 degrees, pulse ox 100% on 2-L. HEENT: Conjunctivae normal. NECK: No jugular venous distention. CARDIOVASCULAR: S1 and S2, muffled. RESPIRATORY: Breath sounds diminished at the bases. A few scattered rhonchi and crackles. ABDOMEN: Soft, nontender. No mass palpable. LEGS: No edema, no swelling. NERVOUS SYSTEM: No focal deficits. LABS: WBC 9.5, platelets are 75 and creatinine is 4.3. ASSESSMENT: 1. Acute tubular necrosis with acute renal failure with possible interstitial nephritis versus acute tubular necrosis scheduled for kidney biopsy currently on empiric steroids. 2. Super morbid obesity with body mass index of 53.1. 3. 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 4. Mild hypokalemia. 5. Hyponatremia. 6. Increased random blood sugar. 7. Hypocalcemia. 8. Thrombocytopenia. 9. Anemia, normocytic, anemia of chronic disease. 10. Atrial fibrillation. 11. History of coronary artery disease. 12. History of diabetes type 2. 13. History of deep venous thrombosis. 14. History of hypertension. 15. Hyperlipidemia. 16. History of degenerative joint disease. 17. History of cardiomyopathy. 18. History of chronic back pain. 19. Automatic implantable cardiovascular defibrillator. 20. History of degenerative joint disease. 21. History of anxiety. 22. FULL CODE. RECOMMENDATIONS AND DISCUSSION: In this 75-year-old gentleman who presented with multiple complex medical issues, we will monitor the patient closely. Continue the current medications and symptomatic treatment. Otherwise at this time I would recommend to continue with steroids. Continue the rest of the medications. Renal biopsy. Monitor creatinine closely. Monitor potassium closely. Guarded prognosis because of multiple complex medical issues. Further recommendations to follow.
[2016-03-03 16:51] LABS: Glucose,Whole Blood 137 mg/dL (75-99)
--- NOTE | 2016-03-03 19:44 | PN ---
Patient is seen for follow-up for acute kidney injury. He is currently awaiting kidney biopsy, which is to be done tomorrow. He has been fairly stable with serum creatinine staying at about 4.1. It has actually decreased from 5.0 on 02/25 to 4.1 now. Patient has had decent urine output. He is maintained on Lasix 40 mg p.o. daily. He was given Lasix IV push x1 yesterday. The patient denies any significant chest pains or shortness of breath. On examination, blood pressure is 165/73, heart rate 50 per minute. He is afebrile. Examination of the heart S1 and S2. Examination of the lungs: Decreased breath sounds in bases but no crackles or wheezing is heard. ABDOMEN: Soft, morbidly obese. Lower extremities show bilateral extremities to be wrapped. Significant edema is noted bilaterally. Labs show sodium 133, potassium 5.0, BUN 115, serum creatinine 4.1. Hemoglobin 9.5 g/dL. ASSESSMENT: 1. Acute kidney injury EIN versus ATN, scheduled for kidney biopsy tomorrow. 2. Fluid overload. I will change the Lasix to IV push. His renal function has been slowly improving, therefore, I feel the patient will be able to tolerate the diuretics. 3. Hypervolemic hyponatremia. Serum sodium staying at about 132 to 133. 4. Anemia of chronic disease. 5. Morbid obesity. PLAN: Kidney biopsy in the a.m. Change Lasix to 40 mg IV push daily.
[2016-03-03 20:04] LABS: Glucose,Whole Blood 138 mg/dL (75-99)
[2016-03-03] MEDS: INSULIN GLARGINE 100 UNIT/ML 10 ML VIAL SQ SCH (20:43)
[2016-03-03] MEDS: ATORVASTATIN 40 MG TAB PO SCH (20:43)
[2016-03-03] MEDS: MELATONIN 5 MG TABLET PO SCH (20:43)
[2016-03-04] MEDS: HEPARIN SODIUM,PORCINE 5,000 UNIT/ML 1 ML VIAL SQ SCH ×4 (00:23→16:12)
[2016-03-04] MEDS: INSULIN LISPRO (humaLOG) 300 UNIT/3 ML VIAL SQ SCH ×7 (07:49→21:28)
[2016-03-04] MEDS: REPAGLINIDE 1 MG TAB PO SCH ×3 (07:51→17:36)
[2016-03-04] MEDS: SODIUM BICARBONATE TAB 650 MG TAB PO SCH ×4 (07:52→21:39)
[2016-03-04] MEDS: predniSONE 10 MG TAB PO SCH ×2 (07:52→21:39)
[2016-03-04] MEDS: DOCUSATE 100 MG CAP PO SCH (07:52)
[2016-03-04] MEDS: CARVEDILOL 12.5 MG TAB PO SCH ×2 (07:52→17:36)
[2016-03-04] MEDS: FAMOTIDINE 20 MG TAB PO SCH (07:52)
[2016-03-04] MEDS: FUROSEMIDE 10 MG/ML 4 ML VIAL IV SCH (07:53)
[2016-03-04 08:22] LABS: Glucose,Whole Blood 78 mg/dL (75-99)
[2016-03-04 08:22] LABS: Glucose,Whole Blood 66 mg/dL (75-99)
[2016-03-04 08:22] LABS: Glucose,Whole Blood 59 mg/dL (75-99)
[2016-03-04 08:45] LABS: INR 1.2 (<1.1)
[2016-03-04 08:51] LABS: Calcium 7.2 mg/dL (8.4-10.2)
[2016-03-04 08:55] LABS: Basophils % (A) 0 %; CH 30.3; CHCM 35.2; Eosinophils % (A) 0 %; HCT 27.2 % (39.0-53.0); HDW 2.92; HGB 9.5 gm/dL (13.0-17.5); Luc # (Auto) 0.12; Luc % (Auto) 2; Lymphocytes # (A) 0.6 k/uL (1.0-4.8); Lymphocytes % (A) 8 %; MCH 30.3 pg (25.0-35.0); MCV 86.6 fL (80.0-100.0); Mean Platelet Volume 7.5; Monocytes # (A) 0.4 k/uL (0-1.0); Monocytes % (A) 6 %; Neutrophils # (A) 6.3 k/uL (1.3-7.7); Neutrophils % (A) 84 %; RBC 3.14 m/uL (4.30-5.90); RDW 13.6 % (11.5-15.5); WBC 7.5 k/uL (3.8-10.6); WBC (Perox) 8.03
--- NOTE | 2016-03-04 09:23 | PN ---
DATE OF SERVICE: 03/03/2016 This 75-year-old gentleman who was admitted acute renal failure is being closely monitored. The patient is on medical treatment at this time. No chest pain, no palpitations. No fever. The creatinine is 4.1, which is showing mild improvement. On exam, alert and oriented x3. Pulse is 50, blood pressure is 165/73, respirations 18, temperature 97.9, pulse ox 98% on 2 L. HEENT: Conjunctivae normal. NECK: No jugular venous distention. CARDIOVASCULAR: S1 and S2, muffled. RESPIRATORY: Breath sounds diminished at the bases. A few rhonchi, no crackles. ABDOMEN: Soft. LEGS: Bilateral leg edema. NERVOUS SYSTEM: No focal deficits. LABS: Hemoglobin 9.5. Platelets 71. ASSESSMENT: 1. Acute tubular necrosis with acute renal failure with possible interstitial nephritis versus acute tubular necrosis scheduled for kidney biopsy, currently on empiric steroids. 2. Super morbid obesity with body mass index of 53.1. 3. Chronic kidney disease secondary to diabetic kidney stage III. 4. Mild hyperkalemia. 5. Hyponatremia. 6. Increased random blood sugar. 7. Hypocalcemia. 8. Thrombocytopenia. 9. Anemia, normocytic anemia of chronic disease. 10. Atrial fibrillation history. 11. History of coronary artery disease. 12. History of diabetes type 2. 13. History of deep venous thrombosis. 14. History of hypertension. 15. History of hyperlipidemia. 16. History of degenerative joint disease. 17. History of cardiomyopathy. 18. History of chronic back pain. 19. Automatic implantable cardioverter-defibrillator. 20. History of anxiety. 21. FULL CODE. 22. Mild hypocalcemia. RECOMMENDATIONS AND DISCUSSION: In this 75-year-old gentleman who presented with multiple complex medical issues, will monitor the patient closely. Continue the current medications. Continue symptomatic treatment. Otherwise at this time, I would recommend repeat labs and continue to monitor. Further recommendations per Nephrology. Guarded prognosis. Further recommendations to follow. MTDD
[2016-03-04 11:15] LABS: Glucose,Whole Blood 96 mg/dL (75-99)
[2016-03-04] MEDS: SOTALOL 120 MG TAB PO SCH ×2 (12:28→21:39)
[2016-03-04 14:17] VITALS: BMI 17.2
[2016-03-04 16:56] LABS: Glucose,Whole Blood 129 mg/dL (75-99)
[2016-03-04] MEDS ORDERED: cloNIDine HCL 0.1 MG TAB PO PRN (19:19)
[2016-03-04] MEDS ORDERED: hydrALAZINE HCL 20 MG/ML 1 ML VIAL IVP PRN (19:19)
--- NOTE | 2016-03-04 19:50 | PN ---
Patient is seen for followup for acute kidney injury He is maintained on empiric steroids. He was scheduled for a kidney biopsy today; however, it will be done tomorrow, as his platelet count was slightly on the lower side at about 69,000. No major complaints today. He will be getting platelets at the time of the kidney biopsy tomorrow. On examination, blood pressure is 177/74. Previous blood pressure was 148/64. EXAMINATION OF THE HEART: S1 and S2. EXAMINATION OF THE LUNGS: Bilateral breath sounds are heard. Decreased breath sounds at the bases. ABDOMEN: Soft, nontender, obese. Examination of lower extremities shows bilateral extremities to be wrapped. ANIMAL CONTROL SPECIALIST exam is grossly intact. Labs show sodium 137, potassium 5.0, hemoglobin 9.5, BUN 119, serum creatinine 4.3. ASSESSMENT: 1. Acute kidney injury, currently non-oliguric; possible AIN versus ATN, scheduled for kidney biopsy tomorrow. 2. Volume overload, maintained on Lasix; currently on 40 mg IV daily, which we can continue. 3. Hypertension, partly volume-sensitive. Patient is maintained on Coreg. He has clonidine and hydralazine p.r.n. I will add p.o. hydralazine to be taken on a regular basis. Continue with the Coreg. 4. Disproportionately elevated BUN secondary to steroids. PLAN: Add oral hydralazine. Continue IV Lasix. Kidney biopsy in a.m.
[2016-03-04 21:22] LABS: Glucose,Whole Blood 105 mg/dL (75-99)
[2016-03-04] MEDS: hydrALAZINE HCL 25 MG TAB PO SCH (21:38)
[2016-03-04] MEDS: MELATONIN 5 MG TABLET PO SCH (21:39)
[2016-03-04] MEDS: INSULIN GLARGINE 100 UNIT/ML 10 ML VIAL SQ SCH (21:39)
[2016-03-04] MEDS: ATORVASTATIN 40 MG TAB PO SCH (21:39)
--- NOTE | 2016-03-04 22:26 | PN ---
DATE OF SERVICE: 03/04/2016 This 75-year-old gentleman, admitted with acute tubular necrosis and acute renal failure, is slated to have renal biopsy. Platelets are low. Patient needs platelet transfusion. No chest pain. No palpitation. No fever. Dr. Payan is following the patient closely. On exam, alert and oriented x3. Pulse 51, blood pressure 186/77, respiration 18, temperature 97.7, pulse ox 96% on 2 L. HEENT: Conjunctivae normal. NECK: No jugular venous distention. CARDIOVASCULAR SYSTEM: S1, S2 muffled. RESPIRATORY SYSTEM: Breath sounds diminished at the bases. A few scattered rhonchi and crackles. ABDOMEN: Soft, obese. LEGS: No edema. No swelling. NERVOUS SYSTEM: No focal deficit. LABS: Hemoglobin 9.5. Creatinine is 4.31. ASSESSMENT: 1. Acute tubular necrosis with acute renal failure with possible interstitial nephritis, scheduled for kidney biopsy. Currently on empiric steroids. 2. Super morbid obesity with a body mass index of 53.1. 3. 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 4. Mild hyperkalemia. 5. Hyponatremia. 6. Increased random blood sugar. 7. Hypocalcemia. 8. Thrombocytopenia. 9. Anemia, normocytic, from anemia of chronic disease. 10. Atrial fibrillation history. 11. History of coronary artery disease. 12. History of diabetes mellitus, type 2. 13. History of deep venous thrombosis. 14. Hypertension. 15. Hyperlipidemia. 16. History of degenerative joint disease. 17. History of cardiomyopathy. 18. Chronic back pain. 19. Automatic implantable cardioverter defibrillator. 20. History of anxiety. 21. Mild hypocalcemia. 22. FULL CODE. RECOMMENDATIONS AND DISCUSSION: I recommend to continue with the current medications, continue with the monitoring, symptomatic treatment. We will monitor the patient closely. Guarded prognosis because of multiple complex medical issues. See orders for further details. Further recommendations to follow.
[2016-03-05 01:58] LABS: Glucose,Whole Blood 75 mg/dL (75-99)
[2016-03-05 07:15] LABS: Glucose,Whole Blood 99 mg/dL (75-99)
[2016-03-05] MEDS: INSULIN LISPRO (humaLOG) 300 UNIT/3 ML VIAL SQ SCH ×2 (07:37→07:38)
[2016-03-05 08:08] LABS: INR 1.2 (<1.1)
[2016-03-05 08:09] LABS: Basophils % (A) 0 %; CH 30.3; Eosinophils % (A) 0 %; HCT 26.7 % (39.0-53.0); HDW 2.82; HGB 9.2 gm/dL (13.0-17.5); Luc # (Auto) 0.09; Luc % (Auto) 1; Lymphocytes # (A) 0.4 k/uL (1.0-4.8); Lymphocytes % (A) 7 %; MCH 29.9 pg (25.0-35.0); MCHC 34.5 g/dL (31.0-37.0); MCV 86.9 fL (80.0-100.0); Mean Platelet Volume 7.6; Monocytes # (A) 0.3 k/uL (0-1.0); Monocytes % (A) 4 %; Neutrophils # (A) 5.7 k/uL (1.3-7.7); Neutrophils % (A) 88 %; RBC 3.07 m/uL (4.30-5.90); RDW 13.7 % (11.5-15.5); WBC 6.6 k/uL (3.8-10.6)
[2016-03-05 08:39] LABS: Calcium 7.2 mg/dL (8.4-10.2); Potassium 5.3 mmol/L (3.5-5.1)
[2016-03-05] MEDS: FUROSEMIDE 10 MG/ML 4 ML VIAL IV SCH (09:21)
[2016-03-05] MEDS: REPAGLINIDE 1 MG TAB PO SCH (11:19)
[2016-03-05] MEDS: DOCUSATE 100 MG CAP PO SCH (11:20)
[2016-03-05] MEDS: predniSONE 10 MG TAB PO SCH (11:20)
[2016-03-05] MEDS: hydrALAZINE HCL 25 MG TAB PO SCH (11:20)
[2016-03-05] MEDS: FAMOTIDINE 20 MG TAB PO SCH (11:21)
[2016-03-05] MEDS: CARVEDILOL 12.5 MG TAB PO SCH (11:21)
[2016-03-05] MEDS: SODIUM BICARBONATE TAB 650 MG TAB PO SCH (11:22)
--- NOTE | 2016-03-05 11:23 | P.PCN ---
Date of Procedure: 03/05/16 Preoperative Diagnosis: renal failure procedure: CT Kidney biopsy After informed consent including the discussion about life threatening bleeding , the patient was placed prone on ct table. After local anesthesia guide needle advanced to level of right kidney lower pole.18 gauge core specimen, 2 passes made, and pulsating bleeding noted in hub of needle. Consultation undertaken with Dr. Arredondo, Dr. Gonzalez, Dr. Payan, Dr. Tariq and nurse practitioner about options for observation or possible transfer while patient remains hemodynamically stable. Core specimens submitted to pathology
[2016-03-05] MEDS ORDERED: SODIUM CHLORIDE 0.9% IVPB STA (11:25)
[2016-03-05] MEDS ORDERED: DESMOPRESSIN IVPB STA (11:25)
[2016-03-05 11:43] LABS: Glucose,Whole Blood 77 mg/dL (75-99)
[2016-03-05 12:16] VITALS: BP 141/65; RESP 14; TEMP 98
[2016-03-05 12:29] LABS: Glucose,Whole Blood 70 mg/dL (75-99)
[2016-03-05 12:33] LABS: Basophils % (A) 0 %; CH 30.3; Eosinophils % (A) 0 %; HCT 22.6 % (39.0-53.0); HDW 2.85; HGB 7.9 gm/dL (13.0-17.5); Luc # (Auto) 0.09; Luc % (Auto) 1; Lymphocytes # (A) 0.5 k/uL (1.0-4.8); Lymphocytes % (A) 7 %; MCH 30.3 pg (25.0-35.0); MCHC 34.8 g/dL (31.0-37.0); MCV 86.9 fL (80.0-100.0); Mean Platelet Volume 8.8; Monocytes # (A) 0.3 k/uL (0-1.0); Monocytes % (A) 5 %; Neutrophils % (A) 87 %; RDW 13.9 % (11.5-15.5); WBC 6.9 k/uL (3.8-10.6); WBC (Perox) 7.13
[2016-03-05 12:45] VITALS: PULSE 50
--- NOTE | 2016-03-05 12:47 | DS ---
DATE OF ADMISSION: 02/21/2016 DATE OF DISCHARGE: FINAL DIAGNOSES: 1. Arterial bleeding, status post renal biopsy. 2. Acute tubular necrosis with acute renal failure with possible interstitial nephritis on empiric steroids. 3. Super morbid obesity with a body mass index of 53.1. 4. Chronic kidney disease secondary to diabetic kidney disease stage III. 5. Mild hyperkalemia. 6. Hyponatremia. 7. Increased random blood sugar. 8. Hypocalcemia. 9. Thrombocytopenia. 10. Anemia, normocytic anemia of chronic disease. 11. History of atrial fibrillation. 12. History of coronary artery disease. 13. History of diabetes mellitus type 2. 14. History of deep venous thrombosis. 15. Hypertension. 16. Hyperlipidemia. 17. Degenerative joint disease. 18. History of cardiomyopathy. 19. Chronic back pain. 20. AICD. 21. History of anxiety. 22. Hypocalcemia. 23. FULL CODE. DISCHARGE DISPOSITION: Patient will be transferred to [facility] in a stable condition. Total time taken 35 minutes. HISTORY OF PRESENT ILLNESS: This 75-year-old gentleman with a past medical history of multiple medical problems was admitted with acute on chronic renal failure. Creatinine was noted to be in the range of 5.16 at the time of admission, the creatinine remained elevated up to 4.43 and nephrology recommended renal biopsy. Dr. Dyer from Radiology performed renal biopsy. Dr Dyer noted a pulsating mass at the tip of the needle at the end of the biopsy and that bleeding was suspected and Dr. Dyer recommended transfer to tertiary care center for possible artery embolization, observation and even possible surgery. The patient also had thrombocytopenia and platelet transfusion has been given. Discussed with the patient. Currently patient is stable. Vitals are stable. Repeat CBC is pending at this time. Discussed the case with [facility], the patient will be transferred to [facility] for further evaluation and treatment. The current medications are as follows: 1. Atorvastatin 40 mg q.h.s. 2. Coreg 25 mg p.o. b.i.d. 3. Desmopressin IV once which was given. 4. Colace 100 mg daily. 5. Pepcid 10 mg daily. 6. Lasix 40 mg IV daily. 7. Heparin was just stopped. 8. Insulin scale. 9. Lispro 3 units t.i.d. 10. Lantus 52 units subQ q.h.s. 11. Ativan 0.5 mg q.8 p.r.n. 12. Magnesium hydroxide 2.4 daily. 13. Melatonin 5 mg q.h.s. 14. Nitro 0.4 sublingual p.r.n. 15. Prandin 2 mg t.i.d. 16. Silver Sulfadiazine. 17. Sodium bicarb 650 q.i.d. 18. Sotalol 120 mg p.o. b.i.d. 19. Clonidine 0.1 p.r.n. 20. Hydralazine p.r.n. 21. Prednisone 30 mg p.o. b.i.d. 22. Ultram 50 mg b.i.d. p.r.n. Once again, the patient will be discharged in a stable condition with guarded prognosis.
--- NOTE | 2016-03-05 15:36 | CT ---
CT-guided renal biopsy HISTORY: Renal failure Following informed consent, discussion was undertaken following the risks and benefits of the procedu re, specifically the risk of potentially life-threatening bleeding was discussed. Patient agreed to g o forward with procedure. Patient was placed in a prone position on the CT scan table. The skin overlying the lower pole cortex of the right kidney was localized with CT and overlying skin was prepped and draped. Lidocaine used for local anesthesia and a skin neck made with a scalpel. A 17-gauge guide needle was advanced to the level approximately 1.5 cm from the level of the renal cortex. 18-gauge needle was passed twice and core specimens were obtained and submitted to pathology. Hemorrhage was noted from the hub of the nee dle. There was a question of pulsatility of the blood flow through the needle hub. Following the proc edure the needle was removed. Hemostasis achieved at the skin. The patient remained hemodynamically s table. The patient returned to observation. Discussion with physicians and nurse practitioner was undertaken to include nephrology, intensive car e, urology, internal medicine about the possibility of life-threatening bleeding. Patient remained he modynamically stable however. IMPRESSION: Status post CT-guided kidney biopsy, pathology pending, this procedure performed by the nesha spicer.
== END 2016-03-05 12:55 | disposition short-term general hospital (02) | DRG 682 ==
LOC: EC 07:58 → 5MS5E 09:49
PROVIDERS: ADMIT Internal Medicine; ATTEND Internal Medicine
PROC: 0T9B70Z Drainage of Bladder with Drainage Device, Via Natural or Artificial Opening (ICD-10-PCS; 2016-02-21)
PROC: 0TB03ZX Excision of Right Kidney, Percutaneous Approach, Diagnostic (ICD-10-PCS; principal; 2016-03-05)
PROC: 30233R1 Transfusion of Nonautologous Platelets into Peripheral Vein, Percutaneous Approach (ICD-10-PCS; 2016-03-05)
DX: I12.9 Hypertensive chronic kidney disease with stage 1 through stage 4 chronic kidney disease, or unspecified chronic kidney disease (principal); N17.0 Acute kidney failure with tubular necrosis; E87.2 Acidosis; D69.3 Immune thrombocytopenic purpura; I42.9 Cardiomyopathy, unspecified; E11.21 Type 2 diabetes mellitus with diabetic nephropathy; N18.4 Chronic kidney disease, stage 4 (severe); E11.42 Type 2 diabetes mellitus with diabetic polyneuropathy; N10 Acute pyelonephritis; Z68.43 Body mass index [BMI] 50.0-59.9, adult; E87.1 Hypo-osmolality and hyponatremia; N99.820 Postprocedural hemorrhage of a genitourinary system organ or structure following a genitourinary system procedure; R16.2 Hepatomegaly with splenomegaly, not elsewhere classified; I48.91 Unspecified atrial fibrillation; E86.9 Volume depletion, unspecified; E11.22 Type 2 diabetes mellitus with diabetic chronic kidney disease; E83.51 Hypocalcemia; E87.5 Hyperkalemia; D63.8 Anemia in other chronic diseases classified elsewhere; I25.10 Atherosclerotic heart disease of native coronary artery without angina pectoris; R33.8 Other retention of urine; N40.1 Benign prostatic hyperplasia with lower urinary tract symptoms; T38.0X5A Adverse effect of glucocorticoids and synthetic analogues, initial encounter; T50.2X5A Adverse effect of carbonic-anhydrase inhibitors, benzothiadiazides and other diuretics, initial encounter; I71.4 Abdominal aortic aneurysm, without rupture; K80.20 Calculus of gallbladder without cholecystitis without obstruction; K59.00 Constipation, unspecified; M51.36 Other intervertebral disc degeneration, lumbar region; M48.06 Spinal stenosis, lumbar region; E78.5 Hyperlipidemia, unspecified; G89.29 Other chronic pain; I25.2 Old myocardial infarction; F41.9 Anxiety disorder, unspecified; K21.9 Gastro-esophageal reflux disease without esophagitis; E66.01 Morbid (severe) obesity due to excess calories; M43.16 Spondylolisthesis, lumbar region; I72.2 Aneurysm of renal artery; M46.96 Unspecified inflammatory spondylopathy, lumbar region; E83.41 Hypermagnesemia; E83.39 Other disorders of phosphorus metabolism; E11.65 Type 2 diabetes mellitus with hyperglycemia; N20.0 Calculus of kidney; M25.78 Osteophyte, vertebrae; M46.06 Spinal enthesopathy, lumbar region; M41.86 Other forms of scoliosis, lumbar region; R05 Cough; R06.02 Shortness of breath; R26.9 Unspecified abnormalities of gait and mobility; K57.90 Diverticulosis of intestine, part unspecified, without perforation or abscess without bleeding; E87.70 Fluid overload, unspecified; M19.90 Unspecified osteoarthritis, unspecified site; R53.1 Weakness; Z74.01 Bed confinement status; Z96.652 Presence of left artificial knee joint; Z86.19 Personal history of other infectious and parasitic diseases; Z88.5 Allergy status to narcotic agent; Z95.810 Presence of automatic (implantable) cardiac defibrillator; Z82.49 Family history of ischemic heart disease and other diseases of the circulatory system; Z87.891 Personal history of nicotine dependence; Z79.82 Long term (current) use of aspirin; Z79.4 Long term (current) use of insulin; Z86.718 Personal history of other venous thrombosis and embolism; Z88.2 Allergy status to sulfonamides; Z88.8 Allergy status to other drugs, medicaments and biological substances; Z79.01 Long term (current) use of anticoagulants; Z79.84 Long term (current) use of oral hypoglycemic drugs; Z79.899 Other long term (current) drug therapy; Z80.9 Family history of malignant neoplasm, unspecified; Y84.8 Other medical procedures as the cause of abnormal reaction of the patient, or of later complication, without mention of misadventure at the time of the procedure; Y78.0 Diagnostic and monitoring radiological devices associated with adverse incidents; Y92.234 Operating room of hospital as the place of occurrence of the external cause
CPT/HCPCS: 36415; 71020; 72131; 74022; 74176; 76770; 77012; 80048; 80053; 80074; 81001; 82550; 82553; 82570; 83036; 83605; 83735; 83883; 84100; 84156; 84484; 85025; 85027; 85610; 85730; 86038; 86160; 86162; 86255; 86335; 86850; 86900; 86901; 87070; 87086; 87205; 88305; 88313; 88346; 88348; 88350; 93005; 93306; 94760; 96361; 96374; 99285